=== PATIENT | female | born 1970 | race Hispanic/Latino ===

== ENCOUNTER 2017-08-19 16:19 | Emergency (ER) | payer MEDICAID, OTHER ==
[2017-08-19 16:48] VITALS: RESP 18; BMI 52.9
[2017-08-19] MEDS ORDERED: Labetalol 5 mg/ml Inj 20ML IV STA (17:11)
--- NOTE | 2017-08-19 17:13 | ED PDOC ---
Arrival/HPI - General Chief Complaint: Eye Problem Time Seen by Provider: 08/19/17 16:48 Historian: Patient - History of Present Illness Narrative History of Present Illness (Text): 08/19/17 17:00 Patient is a 47 year old female who presents to the Emergency department complaining headache and eye pain. She reports that she started experiencing headaches and decreased bilateral vision with left worse than right 2 months ago. 2 weeks ago her left eye started getting worse and she started to experience pain with left eye movement. Patient also reports that her headache is in the center of her forehead and hasn't worsened. She saw her wind farm engineer prior to arrival and was diagnosed with left conjunctiva hemorrhage. Patient wears glasses for near and far sight but hasn't worn them for months. Patient denies fevers, chills, cough, shortness of breath, chest pain, dyspnea on exertion, abdominal pain, nausea, vomiting, diarrhea, back pain, neck pain, or any other complaint. Time/Duration: > month Symptom Onset: Gradual Symptom Course: Worsening Context: Other (At wind farm engineer) Past Medical History - Provider Review Nursing Documentation Reviewed: Yes - Infectious Disease Hx of Infectious Diseases: None - Reproductive Menopause: No - Cardiac Hx Atrial Fibrillation: No Hx Cardiac Arrhythmia: No Hx Congestive Heart Failure: No Hx Hypertension: Yes Hx Mitral Valve Prolapse: No Hx Pacemaker: No Hx Peripheral Edema: No - Pulmonary Hx Asthma: Yes Hx Bronchitis: No Hx Chronic Obstructive Pulmonary Disease (COPD): No Hx Emphysema: No Hx Pneumonia: Yes Hx Pulmonary Embolism: No Hx Sleep Apnea: Yes - Neurological Hx Alzheimer's Disease: No Hx Dementia: No Hx Migraine: No Hx Multiple Sclerosis: No Hx Parkinson's Disease: No Hx Seizures: Yes Hx Transient Ischemic Attacks (TIA): No - HEENT Hx HEENT Disorder: No Hx Cataracts: No Hx Deafness: No Hx Difficulty Chewing: No Hx Epistaxis: No Hx Glaucoma: No Hx Macular Degeneration: No - Renal Hx Renal Disorder: No - Endocrine/Metabolic Hx Endocrine Disorders: No - Hematological/Oncological Hx Blood Disorders: No Hx Cancer: No - Integumentary Hx Dermatological Disorder: No Hx Basal Cell Carcinoma: No Hx Orantes: No Hx Cellulitis: No Hx Eczema: No Hx Melanoma: No Hx Psoriasis: No Hx Squamous Cell Carcinoma: No - Musculoskeletal/Rheumatological Hx Arthritis: No Hx Fractures: No Hx Osteoporosis: No Hx Rheumatoid Arthritis: No - Gastrointestinal Hx Crohn's Disease: No Hx Diverticulitis: No Hx Gall Bladder Disease: No Hx Gastritis: No Hx Pancreatitis: No - Genitourinary/Gynecological Hx Sexually Transmitted Diseases: No - Psychiatric Hx Anxiety: Yes Hx Bipolar Disorder: No Hx Depression: Yes Hx Panic Disorder: Yes Hx Post Traumatic Stress Disorder: No Hx Schizophrenia: Yes Hx Substance Use: Yes (PCP) - Surgical History Hx Appendectomy: No Hx Carotid Endarterectomy: No Hx Cholecystectomy: No Hx Coronary Artery Bypass Graft: No Hx Coronary Stent: No Hx Tonsillectomy: No - Anesthesia Hx Anesthesia: Yes Hx Anesthesia Reactions: No Hx Malignant Hyperthermia: No - Suicidal Assessment Feels Threatened In Home Enviroment: No Family/Social History - Physician Review Nursing Documentation Reviewed: Yes Family/Social History: No Known Family HX Smoking Status: electric Hx Alcohol Use: Yes Hx Substance Use: Yes (PCP) Substance used: PCP Allergies/Home Meds Allergies/Adverse Reactions: Allergies acetaminophen [From Tylenol] Allergy (Intermediate, Verified 03/12/15 13:40) URTICARIA mushroom Allergy (Intermediate, Verified 03/12/15 13:40) SWELLING strawberry Allergy (Intermediate, Verified 03/12/15 13:40) SWELLING ivory so Allergy (Mild, Uncoded 08/19/17 16:31) ITCHING Home Medications: Home Meds Medication Instructions Recorded Confirmed Dilantin 100 mg BID 02/07/14 03/12/15 Buspar 30 mg PO DAILY 04/29/14 03/12/15 Hyzaar 25 mg-100 mg 1 tab PO DAILY 04/29/14 03/12/15 Norvasc 10 mg PO DAILY 04/29/14 03/12/15 Topamax 50 mg PO Q12H 04/29/14 03/12/15 Review of Systems - Physician Review All systems were reviewed & negative as marked: Yes - Review of Systems Constitutional: absent: Fevers, Night Sweats Eyes: Vision Changes, Eye Pain Respiratory: absent: SOB, Cough Cardiovascular: absent: Chest Pain, DANIELSON Gastrointestinal: absent: Abdominal Pain, Diarrhea, Nausea, Vomiting Musculoskeletal: absent: Back Pain, Neck Pain Neurological: Headache Physical Exam Vital Signs Reviewed: Yes Vital Signs Temp Pulse Resp BP Pulse Ox 08/19/17 18:39 159/119 H 08/19/17 16:24 98.6 F 87 18 147/108 H 99 Temperature: Afebrile Blood Pressure: Hypertensive Pulse: Regular Respiratory Rate: Normal Appearance: Positive for: Well-Appearing Mental Status: Positive for: Alert and Oriented X 3 - Systems Exam Head: Present: Atraumatic, Normocephalic Pupils: Present: PERRL, Other (Visual 20/50 bilaterally. Left eye finger counting. Right eye 20/50.) Extroacular Muscles: Present: EOMI, Other (pain with left eye movement) Conjunctiva: Present: Normal Mouth: Present: Moist Mucous Membranes Neck: Present: Normal Range of Motion Respiratory/Chest: Present: Clear to Auscultation, Good Air Exchange. No: Respiratory Distress, Accessory Muscle Use Cardiovascular: Present: Regular Rate and Rhythm, Normal S1, S2. No: Murmurs Abdomen: No: Tenderness, Distention, Peritoneal Signs Back: Present: Normal Inspection Upper Extremity: Present: Normal Inspection. No: Cyanosis, Edema Lower Extremity: Present: Normal Inspection. No: Edema Neurological: Present: GCS=15, CN II-XII Intact, Speech Normal, Motor Func Grossly Intact, Normal Sensory Function, Norm Deep Tendon Reflexes Skin: Present: Warm, Dry, Normal Color. No: Rashes Psychiatric: Present: Alert, Oriented x 3, Normal Insight, Normal Concentration Medical Decision Making ED Course and Treatment: 08/19/17 17:00 Impression: Patient is a 47 year old female complaining of headaches and decreased vision bilaterally, which started 2 months ago and worsened 2 weeks ago. Differential Diagnosis included but are not limited to: Retinal hemorrhage, hypertensive urgency. Plan: --head CT without contrast --Labs --CBC --Trandate -- Reassess and disposition Prior Visits: Notes and results from previous visits were reviewed. Progress Notes: 08/19/17 17:[address]Ronald Viveros, Forms Examiner, who saw her earlier today in his clinic and states she has massive retinal hemorrhage with degeneration and field defect with finger counting to left eye only. He sent her to the ED. 08/19/17 18:48 Case discussed with Opthamologist Dr. Caballero, who recommends she come to his office tomorrow between 8:30-10:30 for an evaluation. He does not recommend any medications at this time. He will set her up with a retinal specialist. I discussed this with patient and she states her can take her to the [place] office. The address is written in the discharge papers. I signed out this case to Dr. Cerrato, to f/u CT, Labs, reevaluate and disposition. - Lab Interpretations I have reviewed the lab results: Yes - RAD Interpretation Radiology Orders: 08/19/17 17:10 HEAD W/O CONTRAST [CT] Stat 08/19/17 18:31 ORBITS/ FACIALS W/O CONTRAST [CT] Stat Police [employer] Instructor: Radiologist - Medication Orders Current Medication Orders: Discontinued Medications Labetalol HCl (Trandate) 20 mg IV STAT STA Stop: 08/19/17 17:12 - Scribe Statement The provider has reviewed the documentation as recorded by the Scribe Luis Denny Provider Scribe Attestation: All medical record entries made by the Scribe were at my direction and personally dictated by me. I have reviewed the chart and agree that the record accurately reflects my personal performance of the history, physical exam, medical decision making, and the department course for this patient. I have also personally directed, reviewed, and agree with the discharge instructions and disposition. Disposition/Present on Arrival - Present on Arrival Any Indicators Present on Arrival: No History of DVT/PE: No History of Uncontrolled Diabetes: No Urinary Catheter: No History of Decub. Ulcer: No History Surgical Site Infection Following: None - Disposition Have Diagnosis and Disposition been Completed?: Yes Diagnosis: Retinal hemorrhage, HTN (hypertension) Disposition Time: 18:51 Patient Problems: Current Active Problems Problem Status Onset HTN (hypertension) Acute Retinal hemorrhage Acute Condition: GOOD Additional Instructions: MELINA VICTOR, thank you for letting us take care of you today. Your provider was Jeramy Leroy DO and you were treated for Retinal Hemorrhage, Hypertension. The emergency medical care you received today was directed at your acute symptoms. If you were prescribed any medication, please fill it and take as directed. It may take several days for your symptoms to resolve. Return to the Emergency Department if your symptoms worsen, do not improve, or if you have any other problems. MAKE SURE TO SEE DR. CABALLERO TOMORROW BETWEEN 8:30 TO 10:30 IN THE [place] ADDRESS: Address: [place] [address] Please contact your doctor or call one of the physicians/clinics you have been referred to that are listed on the Patient Visit Information form that is included in your discharge packet. Bring any paperwork you were given at discharge with you along with any medications you are taking to your follow up visit. Our treatment cannot replace ongoing medical care by a primary care provider outside of the emergency department. Thank you for allowing the [facility] team to be part of your care today. If you had an X-Ray or CT scan: A Radiologist will review the ED reading if any change in treatment is needed we will contact you. If you had a blood, urine, or wound culture: It will take several days for the results, if any change in treatment is needed we will contact you. If you had an STI test: It will take 48 hours for the results. Please call after 1 week if you have not heard back. Forms: [employer] (Turkish)
[2017-08-19 18:54] LABS: BASO # 0.03 K/mm3 (0.0-2.0); BASO % 0.2 % (0.0-3.0); EOS # 0.3 (0.0-0.7); GRAN # 7.31 (1.4-6.5); GRAN % 58.1 % (50.0-68.0); HEMOGLOBIN 14.5 g/dL (12.0-16.0); LYMPH # 4.4 (1.2-3.4); LYMPH % 34.9 % (22.0-35.0); MEAN CELL VOLUME 85.9 fl (80.0-105.0); MEAN CORPUSCULAR HEMOGLOBIN 29.7 pg (25.0-35.0); MEAN CORPUSCULAR HGB CONC 34.6 g/dl (31.0-37.0); MEAN PLATELET VOLUME 10.6 fl (7.0-11.0); MONO # 0.6 (0.1-0.6); MONO % 4.8 % (1.0-6.0); RBC 4.88 10^6/uL (3.5-6.1); RED CELL DISTRIBUTION WIDTH 13.1 % (11.5-14.5); WHITE BLOOD COUNT 12.6 10^3/ul (4.5-11.0)
[2017-08-19 18:55] LABS: CALCIUM 8.7 mg/dL (8.4-10.5); GFR AFRICAN-AMERICAN > 60; GFR NON-AFRICAN AMERICAN > 60
--- NOTE | 2017-08-19 18:58 | ED PDOC ---
Physical Exam Vital Signs Temp Pulse Resp BP Pulse Ox 08/19/17 18:47 74 159/119 H 08/19/17 18:39 159/119 H 08/19/17 16:24 98.6 F 87 18 147/108 H 99 Medical Decision Making ED Course and Treatment: 08/19/17 18:58 Patient endorsed to me by . Pending labs, orbital/facial and head CT without contrast. 08/19/17 19:01 Reevaluation: Patient is in no acute distress and her blood pressure is 124/81. 50mg benadryl PO given when patient returned from CT, she states that she accidentally ate something strawberry flavored thinking it was cornejo flavored, was unable to see the difference due to her decreased vision. Patient with no stridor or respiratory distress. Had mild hives on hands. Symptoms resolved with benadryl. 08/19/17 21:05 CT Head Without Intravenous Contrast: Dictated and Authenticated by: Gideon Terrazas MD IMPRESSION: Nonspecific supratentorial white matter low density. When similar-appearing changes are seen in more mature patient's it is most commonly attributed to chronic small vessel ischemia. While this may also represent the etiology for this patient, given the provided age it is nonspecific. Other etiologies associated with white matter low density include hypertension, vasculitis and demyelinating processes. No acute intracranial hemorrhage or infarction. 08/19/17 21:05 CT Orbits Without Intravenous Contrast: Dictated and Authenticated by: Gideon Terrazas MD IMPRESSION: No acute findings. CT results discussed with patient. Stable for discharge home. Patient understands plan to follow up with alodize machine helper. BP improved throughout ED course. Rx written for NorHydrelisc, which patient takes at home but ran out of. - Lab Interpretations Lab Results: 08/19/17 18:37 08/19/17 18:37 Lab Results 08/19/17 18:37: Sodium 139, Potassium 4.8, Chloride 101, Carbon Dioxide 30, Anion Gap 14, BUN 12, Creatinine 0.6 L, Est GFR ( Amer) > 60, Est GFR ( Non-Af Amer) > 60, Random Glucose 99, Calcium 8.7 08/19/17 18:37: WBC 12.6 H, RBC 4.88, Hgb 14.5, Hct 41.9, MCV 85.9, MCH 29.7, MCHC 34.6, RDW 13.1, Plt Count 307, MPV 10.6, Gran % 58.1, Lymph % (Auto) 34.9, [place] % (Auto) 4.8, Eos % (Auto) 2.0, Baso % (Auto) 0.2, Gran # 7.31 H, Lymph # ( Auto) 4.4 H, [place] # (Auto) 0.6, Eos # (Auto) 0.3, Baso # (Auto) 0.03 I have reviewed the lab results: Yes - RAD Interpretation Radiology Orders: 08/19/17 17:10 HEAD W/O CONTRAST [CT] Stat 08/19/17 18:31 ORBITS/ FACIALS W/O CONTRAST [CT] Stat Security Services Manager: Radiologist - Medication Orders Current Medication Orders: Discontinued Medications Diphenhydramine HCl (Benadryl) 50 mg PO STAT STA Stop: 08/19/17 20:46 Labetalol HCl (Trandate) 20 mg IV STAT STA Stop: 08/19/17 17:12 Last Admin: 08/19/17 18:47 Dose: 20 mg eMAR Start Stop Document 08/19/17 18:47 MR (Rec: 08/19/17 18:47 MR [id number]) Intravenous Solution Start Date 08/19/17 Start Time 18:47 End Date 08/19/17 End time 18:49 Total Infusion Time 2 MAR Pulse and Blood Pressure Document 08/19/17 18:47 MR (Rec: 08/19/17 18:47 MR [id number]) Pulse Pulse Rate (60-90) 74 Blood Pressure Blood Pressure (100/60-150/90) 159/119 Metoclopramide HCl (Reglan) 10 mg IVP STAT STA Stop: 08/19/17 18:51 Last Admin: 08/19/17 19:15 Dose: 10 mg IVP Administration Document 08/19/17 19:15 RG (Rec: 08/19/17 19:32 RG [id number]) Charges for Administration # of IVP Administrations 1 - Scribe Statement The provider has reviewed the documentation as recorded by the Scribe Luis Denny Provider Scribe Attestation: All medical record entries made by the Scribe were at my direction and personally dictated by me. I have reviewed the chart and agree that the record accurately reflects my personal performance of the history, physical exam, medical decision making, and the department course for this patient. I have also personally directed, reviewed, and agree with the discharge instructions and disposition. Disposition/Present on Arrival - Present on Arrival Any Indicators Present on Arrival: No History of DVT/PE: No History of Uncontrolled Diabetes: No Urinary Catheter: No History of Decub. Ulcer: No History Surgical Site Infection Following: None - Disposition Have Diagnosis and Disposition been Completed?: Yes Diagnosis: Retinal hemorrhage, HTN (hypertension) Disposition: HOME/ ROUTINE Disposition Time: 21:20 Condition: GOOD Discharge Instructions (ExitCare): High Blood Pressure (DC), How to Care for Your Eyes Additional Instructions: MELINA VICTOR, thank you for letting us take care of you today. Your provider was Jeramy Leroy DO and you were treated for Retinal Hemorrhage, Hypertension. The emergency medical care you received today was directed at your acute symptoms. If you were prescribed any medication, please fill it and take as directed. It may take several days for your symptoms to resolve. Return to the Emergency Department if your symptoms worsen, do not improve, or if you have any other problems. MAKE SURE TO SEE DR. CABALLERO TOMORROW BETWEEN 8:30 TO 10:30 IN THE [place] ADDRESS: Address: [address] [place] [id number] Please contact your doctor or call one of the physicians/clinics you have been referred to that are listed on the Patient Visit Information form that is included in your discharge packet. Bring any paperwork you were given at discharge with you along with any medications you are taking to your follow up visit. Our treatment cannot replace ongoing medical care by a primary care provider outside of the emergency department. Thank you for allowing the [facility] team to be part of your care today. If you had an X-Ray or CT scan: A Radiologist will review the ED reading if any change in treatment is needed we will contact you. If you had a blood, urine, or wound culture: It will take several days for the results, if any change in treatment is needed we will contact you. If you had an STI test: It will take 48 hours for the results. Please call after 1 week if you have not heard back. Prescriptions: amLODIPine [Norvasc] 10 mg PO DAILY #20 tab Forms: [employer] (Wolof)
[2017-08-19 19:00] LABS: BLOOD UREA NITROGEN 12 mg/dL (7-21)
[2017-08-19 21:31] VITALS: BP 150/81; PULSE 82; O2SAT 96
[2017-08-19 21:42] VITALS: TEMP 98.5
--- NOTE | 2017-08-20 09:24 | CT ---
Date of service: 08/19/2017 PROCEDURE: CT HEAD WITHOUT CONTRAST. HISTORY: headache COMPARISON: None available. TECHNIQUE: Axial computed tomography images were obtained through the head/brain without intravenous contrast. Radiation dose: Total exam DLP = 1001 mGy-cm. This CT exam was performed using one or more of the following dose reduction techniques: Automated exposure control, adjustment of the mA and/or kV according to patient size, and/or use of iterative reconstruction technique. FINDINGS: HEMORRHAGE: No intracranial hemorrhage. BRAIN: No mass effect or edema. No atrophy or chronic microvascular ischemic changes. VENTRICLES: Unremarkable. No hydrocephalus. CALVARIUM: Unremarkable. PARANASAL SINUSES: Unremarkable as visualized. No significant inflammatory changes. MASTOID AIR CELLS: Unremarkable as visualized. No inflammatory changes. OTHER FINDINGS: The report concurs with the preliminary [facility] report IMPRESSION: No acute findings
--- NOTE | 2017-08-20 09:29 | CT ---
Date of service: 08/19/2017 PROCEDURE: CT ORBITS WITHOUT CONTRAST. HISTORY: pain with left eye movement COMPARISON: None available. TECHNIQUE: Axial CT images of the orbits were obtained. Coronal and sagittal reformats were generated. Radiation dose: Total exam DLP = 486 mGy-cm. This CT exam was performed using one or more of the following dose reduction techniques: Automated exposure control, adjustment of the mA and/or kV according to patient size, and/or use of iterative reconstruction technique. FINDINGS: RIGHT ORBIT: RIGHT BONY ORBIT: Normal. RIGHT INTRAORBITAL STRUCTURES: Globe: Normal. Extraocular muscles: Normal. Post septal space: Normal. Optic Nerve: Normal. Lacrimal Apparatus: Normal. RIGHT PRESEPTAL SOFT TISSUES: Normal. LEFT ORBIT: LEFT BONY ORBIT: Normal. LEFT INTRAORBITAL STRUCTURES: Globe: Normal. Extraocular muscles: Normal. Post septal space: Normal Optic Nerve: Normal. . Lacrimal Apparatus: Normal. LEFT PRESEPTAL SOFT TISSUES: Normal. OTHER: The report concurs with the preliminary [facility] report IMPRESSION: Unremarkable non contrast enhanced CT of the orbits.
== END 2017-08-19 21:20 | disposition home or self-care (01) ==
LOC: ED 16:19
DX: I10 Essential (primary) hypertension (principal); H35.62 Retinal hemorrhage, left eye; F20.9 Schizophrenia, unspecified
CPT/HCPCS: 70450; 70480; 80048; 85025; 96374; 99285; J2765

== ENCOUNTER 2017-10-20 13:16 | Emergency (ER) | payer OTHER ==
[2017-10-20 13:17] VITALS: BMI 52.9
[2017-10-20] MEDS ORDERED: Albuterol-Ipratrop 3 mg / 0.5 (3 ml) UD IH STA (13:59)
--- NOTE | 2017-10-20 14:03 | ED PDOC ---
Arrival/HPI - General Historian: Patient - History of Present Illness Time/Duration: < week Symptom Course: Worsening Quality: Pressure Severity Level: Mild <Elvin Posada - Last Filed: 10/20/17 15:29> <Erasto Gonzalez - Last Filed: 10/20/17 15:43> - General Chief Complaint: Cough, Cold, Congestion Time Seen by Provider: 10/20/17 13:18 - History of Present Illness Narrative History of Present Illness (Text): Patient is a 47 year old female with PMH of asthma, HTN, and DVT presenting to the ED with cough and shortness of breath. Patient states that she started coughing and having shortness of breath 4 days ago and it is getting worse. She describes the cough to be non-productive and constant. She states that her chest hurts when she coughs and her inhaler only helps a little. Patient is also complaining of a headache from coughing too much. Patient denies fevers, chills, abdominal pain, N/V/D, or urinary symptoms. (Elvin Posada) Past Medical History - Provider Review Nursing Documentation Reviewed: Yes - Travel History Have you recently traveled outside [place] w/in the past 3 mons?: No - Infectious Disease Hx of Infectious Diseases: None - Cardiac Hx Hypertension: Yes - Pulmonary Hx Asthma: Yes Hx Pneumonia: Yes Hx Sleep Apnea: Yes - Neurological Hx Seizures: Yes - HEENT Hx HEENT Disorder: No - Renal Hx Renal Disorder: No - Endocrine/Metabolic Hx Endocrine Disorders: No - Hematological/Oncological Hx Blood Disorders: No - Integumentary Hx Dermatological Disorder: No - Musculoskeletal/Rheumatological Hx Musculoskeletal Disorders: No - Gastrointestinal Hx Gastrointestinal Disorders: No - Genitourinary/Gynecological Hx Genitourinary Disorders: No - Psychiatric Hx Anxiety: Yes Hx Depression: Yes Hx Panic Disorder: Yes Hx Schizophrenia: Yes Hx Substance Use: Yes (PCP) - Surgical History Hx Appendectomy: No Hx Carotid Endarterectomy: No Hx Cholecystectomy: No Hx Coronary Artery Bypass Graft: No Hx Coronary Stent: No Hx Tonsillectomy: No - Anesthesia Hx Anesthesia: Yes Hx Anesthesia Reactions: No Hx Malignant Hyperthermia: No - Suicidal Assessment Feels Threatened In Home Enviroment: No <Elvin Posada - Last Filed: 10/20/17 15:29> Family/Social History - Physician Review Nursing Documentation Reviewed: Yes Family/Social History: No Known Family HX Smoking Status: Former Smoker (14 pack years smoking history, quit 8 months ago) Hx Alcohol Use: Yes Frequency of alcohol use: Socially Hx Substance Use: Yes (PCP) Substance used: PCP <Elvin Posada - Last Filed: 10/20/17 15:29> Allergies/Home Meds <Elvin Posada - Last Filed: 10/20/17 15:29> <Erasto Gonzalez - Last Filed: 10/20/17 15:43> Allergies/Adverse Reactions: Allergies acetaminophen [From Tylenol] Allergy (Intermediate, Verified 10/20/17 13:28) URTICARIA mushroom Allergy (Intermediate, Verified 10/20/17 13:28) SWELLING strawberry Allergy (Intermediate, Verified 10/20/17 13:28) SWELLING ivory so Allergy (Mild, Uncoded 10/20/17 13:28) ITCHING Review of Systems - Physician Review All systems were reviewed & negative as marked: Yes - Review of Systems Constitutional: Normal. absent: Fevers, Night Sweats Eyes: Normal ENT: Normal Respiratory: SOB, Cough. absent: Sputum, Wheezing Cardiovascular: Chest Pain (Complains of chest pain when she coughs). absent: Palpitations, Calf Pain Gastrointestinal: Normal. absent: Abdominal Pain, Constipation, Diarrhea, Nausea, Vomiting Genitourinary Female: Normal. absent: Dysuria, Frequency, Hematuria Musculoskeletal: Normal Skin: Normal. absent: Rash, Pruritis, Skin Lesions, Laceration Neurological: Headache. absent: Dizziness, Speech Changes Psychiatric: Normal. absent: Anxiety, Depression <Elvin Posada - Last Filed: 10/20/17 15:29> Physical Exam Vital Signs Reviewed: Yes Temperature: Afebrile Blood Pressure: Hypertensive Pulse: Regular Respiratory Rate: Normal Appearance: Positive for: Well-Appearing, Non-Toxic, Uncomfortable Pain Distress: Mild Mental Status: Positive for: Alert and Oriented X 3 - Systems Exam Head: Present: Atraumatic, Normocephalic Pupils: Present: PERRL Extroacular Muscles: Present: EOMI Conjunctiva: Present: Normal Mouth: Present: Moist Mucous Membranes Respiratory/Chest: Present: Clear to Auscultation, Good Air Exchange. No: Respiratory Distress, Accessory Muscle Use, Wheezes, Rales, Rhonchi Cardiovascular: Present: Regular Rate and Rhythm, Normal S1, S2. No: Murmurs, Rub, Gallop Abdomen: Present: Normal Bowel Sounds. No: Tenderness, Distention, Peritoneal Signs Upper Extremity: Present: Normal Inspection. No: Cyanosis, Edema Lower Extremity: Present: Normal Inspection, NORMAL PULSES. No: Edema, CALF TENDERNESS, Dominga's Sign Neurological: Present: GCS=15, CN II-XII Intact, Speech Normal Skin: Present: Warm, Dry, Normal Color. No: Rashes Psychiatric: Present: Alert, Oriented x 3, Normal Insight, Normal Concentration <Elvin Posada - Last Filed: 10/20/17 15:29> Vital Signs Temp Pulse Resp BP Pulse Ox 10/20/17 15:37 98.1 F 70 17 140/88 97 10/20/17 13:25 98.4 F 72 18 155/98 H 96 Medical Decision Making <Elvin Posada - Last Filed: 10/20/17 15:29> - RAD Interpretation Rn Peritoneal Dialysis: Radiologist <Erasto Gonzalez - Last Filed: 10/20/17 15:43> ED Course and Treatment: Impression: Patient is a 47 year old female presenting to the ED with a cough and shortness of breath. Differential Diagnosis included but are not limited to: - Asthma exacerbation - Chronic bronchitis - PE Plan: -- CBC -- CMP -- D-dimer -- CXR -- Urine test -- Troponin -- EKG -- BNP -- Duoneb -- UDS -- Serum alcohol level Progress Notes: 10/20/17 14:15 - EKG: NSR at 78 bpm - Urine test: negative 10/20/17 15:17 - UDS: positive for PCP and coccaine. - BNP: 161 - Troponin: <0.01 - WBC: 13.1 - D-dimer: <200 - Patient is stable for discharge (Elvin Posada) 10/20/17 14:26 Seen and examined with the resident. Our history and physical exam reveals a woman complaining of a several day history of a cough congestion shortness of breath and chest pain with coughing. History of polysubstance abuse. Lung sounds are diminished. She is in some mild respiratory distress. No fever or chills. No sputum production. 10/20/17 14:27 EKG shows normal sinus rhythm rate approximately [address] and T- wave changes especially laterally. (Erasto Gonzalez) - Lab Interpretations Lab Results: 10/20/17 14:10 10/20/17 14:10 Lab Results 10/20/17 14:10: Urine HCG, Qual Negative 10/20/17 14:10: Urine Opiates Screen Negative, Urine Methadone Screen Negative, Ur Barbiturates Screen Negative, Ur Phencyclidine Scrn Positive H, Ur Amphetamines Screen Negative, U Benzodiazepines Scrn Negative, U Oth Cocaine Metabols Positive H, U Cannabinoids Screen Negative 10/20/17 14:10: Alcohol, Quantitative < 10 10/20/17 14:10: D-Dimer, Quantitative < 200 10/20/17 14:10: Sodium 140, Potassium 4.0, Chloride 102, Carbon Dioxide 33, Anion Gap 10, BUN 7, Creatinine 0.7, Est GFR ( Amer) > 60, Est GFR (Non- Af Amer) > 60, Random Glucose 110, Calcium 8.5, Total Bilirubin 0.5, AST 21, ALT 29, Alkaline Phosphatase 69, Troponin I < 0.01, Total Protein 6.5, Albumin 3.5, Globulin 3.0, Albumin/Globulin Ratio 1.2 10/20/17 14:10: WBC 13.1 H, RBC 4.49, Hgb 13.2, Hct 39.6, MCV 88.2, MCH 29.4, MCHC 33.3, RDW 13.0, Plt Count 298, MPV 10.1, Gran % 62.9, Lymph % (Auto) 28.9, Owen % (Auto) 6.3 H, Eos % (Auto) 1.7, Baso % (Auto) 0.2, Gran # 8.21 H, Lymph # (Auto) 3.8 H, Owen # (Auto) 0.8 H, Eos # (Auto) 0.2, Baso # (Auto) 0.03 10/20/17 14:10: NT-Pro-B Natriuret Pep 161 - RAD Interpretation Radiology Orders: 10/20/17 13:58 CXR [CHEST PORTABLE] [RAD] Stat Chest one view is read by the radiologist shows no infiltrate effusion or cardiomegaly. (Erasto Gonzalez) - Medication Orders Current Medication Orders: Discontinued Medications Albuterol/Ipratropium (Duoneb 3 Mg/0.5 Mg (3 Ml) Ud) 3 ml IH ONCE STA Stop: 10/20/17 14:00 Last Admin: 10/20/17 14:19 Dose: 3 ml Disposition/Present on Arrival - Present on Arrival Any Indicators Present on Arrival: No History of DVT/PE: No History of Uncontrolled Diabetes: No Urinary Catheter: No History of Decub. Ulcer: No History Surgical Site Infection Following: None - Disposition Have Diagnosis and Disposition been Completed?: Yes Patient Plan: Discharge <Elvin Posada - Last Filed: 10/20/17 15:29> - Present on Arrival Any Indicators Present on Arrival: No History of DVT/PE: No History of Uncontrolled Diabetes: No Urinary Catheter: No History of Decub. Ulcer: No - Disposition Have Diagnosis and Disposition been Completed?: Yes Disposition Time: 15:20 Patient Plan: Discharge <Erasto Gonzalez - Last Filed: 10/20/17 15:43> - Disposition Diagnosis: Substance abuse, Asthma exacerbation, Asthmatic bronchitis Disposition: HOME/ ROUTINE Patient Problems: Current Active Problems Problem Status Onset Asthma exacerbation Acute Asthmatic bronchitis Acute Substance abuse Acute Condition: IMPROVED Discharge Instructions (ExitCare): Asthma in Adults, Acute Bronchitis, Drug Abuse Treatment, How to Use a Spacer Additional Instructions: MELINA VICTOR, thank you for letting us take care of you today. Your provider was Ed Gonzalez MD and you were treated for cough. The emergency medical care you received today was directed at your acute symptoms. If you were prescribed any medication, please fill it and take as directed. It may take several days for your symptoms to resolve. Return to the Emergency Department if your symptoms worsen, do not improve, or if you have any other problems. Please contact your doctor or call one of the physicians/clinics you have been referred to that are listed on the Patient Visit Information form that is included in your discharge packet. Bring any paperwork you were given at discharge with you along with any medications you are taking to your follow up visit. Our treatment cannot replace ongoing medical care by a primary care provider outside of the emergency department. Thank you for allowing the [facility] team to be part of your care today. Prescriptions: Amoxicillin [Amoxil 250 mg Cap] 250 mg PO TID #21 cap Prednisone [Deltasone] 20 mg PO DAILY #5 tablet Benzonatate [Tessalon Perles] 100 mg PO Q8 #30 sgl Albuterol HFA [Ventolin HFA 90 mcg/actuation (8 g)] 2 puff IH [id number] #1 puff Referrals: Sherrie Wallace MD [Medical Doctor] - Follow up with primary Forms: [employer] (Turkmen)
[2017-10-20 14:26] LABS: BASO # 0.03 K/mm3 (0.0-2.0); BASO % 0.2 % (0.0-3.0); EOS # 0.2 (0.0-0.7); EOS % 1.7 % (1.5-5.0); GRAN # 8.21 (1.4-6.5); GRAN % 62.9 % (50.0-68.0); HEMOGLOBIN 13.2 g/dL (12.0-16.0); LYMPH # 3.8 (1.2-3.4); LYMPH % 28.9 % (22.0-35.0); MEAN CELL VOLUME 88.2 fl (80.0-105.0); MEAN CORPUSCULAR HEMOGLOBIN 29.4 pg (25.0-35.0); MEAN CORPUSCULAR HGB CONC 33.3 g/dl (31.0-37.0); MEAN PLATELET VOLUME 10.1 fl (7.0-11.0); MONO # 0.8 (0.1-0.6); MONO % 6.3 % (1.0-6.0); RBC 4.49 10^6/uL (3.5-6.1); WHITE BLOOD COUNT 13.1 10^3/ul (4.5-11.0)
[2017-10-20 14:40] LABS: ALB/GLOB RATIO 1.2 (1.1-1.8); ALBUMIN 3.5 g/dL (3.0-4.8); ALT/SGPT 29 U/L (7-56); AST/SGOT 21 U/L (14-36); BLOOD UREA NITROGEN 7 mg/dL (7-21); CALCIUM 8.5 mg/dL (8.4-10.5); GFR NON-AFRICAN AMERICAN > 60
[2017-10-20 14:50] LABS: TROPONIN I < 0.01 ng/mL
[2017-10-20 15:03] LABS: BARBITURATES, UR NEGATIVE (NEGATIVE); BENZODIAZEPINES, UR NEGATIVE (NEGATIVE); OPIATES, UR NEGATIVE (NEGATIVE); PHENCYCLIDINE, UR POSITIVE (NEGATIVE)
--- NOTE | 2017-10-20 15:19 | RAD ---
Date of service: 10/20/2017 HISTORY: SOB, cough COMPARISON: No prior. FINDINGS: LUNGS: No active pulmonary disease. PLEURA: No significant pleural effusion identified, no pneumothorax apparent. CARDIOVASCULAR: Cardiomegaly suggested. No definite pulmonary vascular congestion. OSSEOUS STRUCTURES: No significant abnormalities. VISUALIZED UPPER ABDOMEN: Normal. OTHER FINDINGS: None. IMPRESSION: Cardiomegaly is suggested. No definite pulmonary vascular congestion. No acute pulmonary disease appreciated bilaterally.
[2017-10-20 15:38] VITALS: BP 140/88; PULSE 70; RESP 17; TEMP 98.1; O2SAT 97
--- NOTE | 2017-10-20 18:29 | CARD ---
APPROVED REPORT Date of service: 10/20/2017 EKG Measurement Heart [id number] <Conclusion> Normal sinus rhythm ST & T wave abnormality, consider inferolateral ischemia Abnormal ECG
== END 2017-10-20 15:57 | disposition home or self-care (01) ==
LOC: ED 13:16
DX: J45.901 Unspecified asthma with (acute) exacerbation (principal); F19.10 Other psychoactive substance abuse, uncomplicated; I10 Essential (primary) hypertension; F41.9 Anxiety disorder, unspecified; Z87.891 Personal history of nicotine dependence

== ENCOUNTER 2017-12-01 06:21 | Inpatient (IN) | payer OTHER ==
[2017-12-01 06:22] VITALS: BMI 52.9
[2017-12-01] MEDS ORDERED: Sodium Chloride 0.9% 1,000 ML IV STA (07:04)
--- NOTE | 2017-12-01 07:05 | ED PDOC ---
Arrival/HPI - General Chief Complaint: Shortness Of Breath Time Seen by Provider: 12/01/17 06:54 Historian: Patient - History of Present Illness Narrative History of Present Illness (Text): 47 y/o Fw/ PMH includes complex psychiatric history, DVT, asthma, and hypertension presenting to the emergency department complaining of persistent chest pain worsening since last night. She reports mid-sternal chest pain that radiates towards the back. She states she feels dizzy and dyspneic at rest. Of note, the patient was recently treated for pneumonia at [facility]. She reports recent diffuse watery diarrhea as result of being on antibiotics and reports a tingling sensation in her right lower extremity worsened with ambulation. She denies any fever, chills, productive cough, nausea, vomiting, urinary symptoms, neck pain, headache, or any other complaints. PMD: Dr. Heather Hou Time/Duration: Prior to Arrival Symptom Onset: Sudden Symptom Course: Worsening Severity Level: Moderate Activities at Onset: Rest Context: Home Past Medical History - Provider Review Nursing Documentation Reviewed: Yes - Travel History Have you recently traveled outside [place] w/in the past 3 mons?: No - Infectious Disease Hx of Infectious Diseases: None - Cardiac Hx Hypertension: Yes - Pulmonary Hx Asthma: Yes Hx Pneumonia: Yes Hx Sleep Apnea: Yes - Neurological Hx Seizures: Yes - HEENT Hx HEENT Disorder: No - Renal Hx Renal Disorder: No - Endocrine/Metabolic Hx Endocrine Disorders: No - Hematological/Oncological Hx Blood Disorders: No - Integumentary Hx Dermatological Disorder: No - Musculoskeletal/Rheumatological Hx Musculoskeletal Disorders: No - Gastrointestinal Hx Gastrointestinal Disorders: No - Genitourinary/Gynecological Hx Genitourinary Disorders: No - Psychiatric Hx Anxiety: Yes Hx Depression: Yes Hx Panic Disorder: Yes Hx Schizophrenia: Yes Hx Substance Use: Yes (PCP) - Surgical History Hx Appendectomy: No Hx Carotid Endarterectomy: No Hx Cholecystectomy: No Hx Coronary Artery Bypass Graft: No Hx Coronary Stent: No Hx Tonsillectomy: No - Anesthesia Hx Anesthesia: Yes Hx Anesthesia Reactions: No Hx Malignant Hyperthermia: No - Suicidal Assessment Feels Threatened In Home Enviroment: No Family/Social History - Physician Review Nursing Documentation Reviewed: Yes Family/Social History: No Known Family HX Smoking Status: Former Smoker Hx Alcohol Use: Yes Hx Substance Use: Yes (PCP) Substance used: PCP Allergies/Home Meds Allergies/Adverse Reactions: Allergies acetaminophen [From Tylenol] Allergy (Intermediate, Verified 10/20/17 13:28) URTICARIA mushroom Allergy (Intermediate, Verified 10/20/17 13:28) SWELLING strawberry Allergy (Intermediate, Verified 10/20/17 13:28) SWELLING ivory so Allergy (Mild, Uncoded 10/20/17 13:28) ITCHING Review of Systems - Physician Review All systems were reviewed & negative as marked: Yes - Review of Systems Constitutional: absent: Fevers, Other (Chills) Respiratory: SOB. absent: Cough Cardiovascular: Chest Pain Gastrointestinal: Diarrhea. absent: Nausea, Vomiting Genitourinary Female: absent: Dysuria, Frequency, Hematuria Musculoskeletal: absent: Neck Pain Neurological: Dizziness, Other (tingling sensation in her right lower extremity ). absent: Headache Physical Exam Vital Signs Reviewed: Yes Vital Signs Temp Pulse Resp BP Pulse Ox 12/01/17 06:40 151/91 H 12/01/17 06:27 97.9 F 80 18 98 Temperature: Afebrile Blood Pressure: Hypertensive Pulse: Regular Respiratory Rate: Normal Appearance: Positive for: Well-Appearing, Non-Toxic, Comfortable Pain Distress: None Mental Status: Positive for: Alert and Oriented X 3 (Able to speak in full sentences) - Systems Exam Head: Present: Atraumatic, Normocephalic Pupils: Present: PERRL Extroacular Muscles: Present: EOMI Conjunctiva: Present: Normal Mouth: Present: Moist Mucous Membranes Neck: Present: Normal Range of Motion Respiratory/Chest: Present: Clear to Auscultation, Good Air Exchange, Tender to Palpation (of the midsternal region of chest). No: Respiratory Distress, Accessory Muscle Use Cardiovascular: Present: Regular Rate and Rhythm, Normal S1, S2. No: Murmurs Abdomen: No: Tenderness, Distention, Peritoneal Signs Back: Present: Normal Inspection Upper Extremity: Present: Normal Inspection. No: Cyanosis, Edema Lower Extremity: Present: Normal Inspection. No: Edema, Other (Negative for right leg calf squeezing. No pedal edema or leg asymmetry ) Neurological: Present: GCS=15, CN II-XII Intact, Speech Normal Skin: Present: Warm, Dry, Normal Color. No: Rashes Psychiatric: Present: Alert, Oriented x 3, Normal Insight, Normal Concentration Medical Decision Making ED Course and Treatment: 12/01/17 06:50 Impression: 47 year old female presents complaining of persistent chest pain worsening since last night associated with dizziness and shortness of breath at rest. Patient also reports a tingling sensation in her right lower extremity. Differential Diagnosis included but are not limited to: Pneumonia Bronchitis PE Plan: -- VBG -- Labs -- CXR -- IV Fluids --Toradol -- Blood Culture -- Urine Test -- O2 via nasal cannula -- Urinalysis -- Reassess and disposition Prior Visits: Notes and results from previous visits were reviewed. Patient was last seen in the emergency department on cough and shortness of breath for the past 4 days. Patient was discharged home. Progress Notes: 12/01/17 08:[address] Murcia(hospitalist) who is aware and agrees with the plan. Accepts patient into hospitalist service. 12/01/17 08:36 Lab unable to draw coags from sample submitted. Attempted to redraw blood from patient who refuses. Will continue to monitor patient. - Lab Interpretations I have reviewed the lab results: Yes - RAD Interpretation Narrative RAD Interpretations (Text): PROCEDURE: Chest X-ray Dictator : Sidra Aponte MD Report Date : 12/01/2017 09:59:02 IMPRESSION: No active pulmonary disease. Radiology Orders: 12/01/17 07:01 CHEST PORTABLE [RAD] Stat Dining Service Inspector: Radiologist - EKG Interpretation EKG Interpretation (Text): 12/01/17 07:26 EKG shows Sinus at [address] elevation, no ST wave inversions, Prolonged QT intervals. Interpreted by me. Interpreted by ED Physician: Yes Type: 12 lead EKG - Medication Orders Current Medication Orders: Sodium Chloride (Sodium Chloride 0.9%) 1,000 mls @ 999 mls/hr IV .Q1H1M STA Stop: 12/01/17 08:04 Ketorolac Tromethamine (Toradol) 30 mg IVP STAT STA Stop: 12/01/17 07:05 - Scribe Statement The provider has reviewed the documentation as recorded by the Scribe Arturo Lou Provider Scribe Attestation: All medical record entries made by the Scribe were at my direction and personally dictated by me. I have reviewed the chart and agree that the record accurately reflects my personal performance of the history, physical exam, medical decision making, and the department course for this patient. I have also personally directed, reviewed, and agree with the discharge instructions and disposition. Disposition/Present on Arrival - Present on Arrival Any Indicators Present on Arrival: No History of DVT/PE: No History of Uncontrolled Diabetes: No Urinary Catheter: No History of Decub. Ulcer: No History Surgical Site Infection Following: None - Disposition Have Diagnosis and Disposition been Completed?: Yes Diagnosis: Pneumonia Disposition: HOSPITALIZED Disposition Time: 08:40 Condition: GOOD
[2017-12-01 07:54] LABS: BASO # 0.02 K/mm3 (0.0-2.0); BASO % 0.2 % (0.0-3.0); EOS # 0.3 (0.0-0.7); EOS % 2.1 % (1.5-5.0); GRAN # 7.5 (1.4-6.5); GRAN % 61.7 % (50.0-68.0); HEMOGLOBIN 12.7 g/dL (12.0-16.0); LYMPH # 3.6 (1.2-3.4); LYMPH % 29.3 % (22.0-35.0); MEAN CELL VOLUME 88.4 fl (80.0-105.0); MEAN CORPUSCULAR HGB CONC 32.8 g/dl (31.0-37.0); MEAN PLATELET VOLUME 10.2 fl (7.0-11.0); MONO # 0.8 (0.1-0.6); MONO % 6.7 % (1.0-6.0); RBC 4.38 10^6/uL (3.5-6.1); RED CELL DISTRIBUTION WIDTH 12.8 % (11.5-14.5); VENOUS BLOOD GAS BASE EXCESS 6.4 mmol/L (0.0-2.0); VENOUS BLOOD GAS PO2 86 mm/Hg (30-55); VENOUS BLOOD PH 7.37 (7.32-7.43); WHITE BLOOD COUNT 12.1 10^3/ul (4.5-11.0)
[2017-12-01 07:57] LABS: URINE BILIRUBIN NEGATIVE (NEGATIVE); URINE BLOOD TRACE-INTACT (NEGATIVE); URINE GLUCOSE (UA) NEGATIVE (NEGATIVE); URINE LEUKOCYTE ESTERASE NEGATIVE Leu/uL (NEGATIVE); URINE PROTEIN NEGATIVE mg/dL (<30 mg/dL); URINE UROBILINOGEN 0.2 E.U./dL (<1 E.U./dL)
[2017-12-01 08:03] LABS: ALB/GLOB RATIO 1.1 (1.1-1.8); ALBUMIN 3.5 g/dL (3.0-4.8); ALT/SGPT 34 U/L (7-56); AST/SGOT 18 U/L (14-36); BLOOD UREA NITROGEN 9 mg/dL (7-21); CALCIUM 8.3 mg/dL (8.4-10.5); GFR NON-AFRICAN AMERICAN > 60
[2017-12-01] MEDS ORDERED: Piperacill/Tazo 4.5gm in NS 4.5 GM/100 ML BAG IVPB STA (08:04)
[2017-12-01] MEDS ORDERED: Albuterol-Ipratrop 3 mg / 0.5 (3 ml) UD IH STA (08:05)
[2017-12-01 08:14] LABS: B-TYPE NATRIURETIC PEPTIDE 98.3 pg/mL (0-450); TROPONIN I < 0.01 ng/mL
[2017-12-01 08:25] LABS: URINE COLOR YELLOW (YELLOW)
[2017-12-01 08:26] LABS: URINE APPEARANCE CLEAR (CLEAR)
[2017-12-01 08:29] LABS: BARBITURATES, UR NEGATIVE (NEGATIVE); BENZODIAZEPINES, UR NEGATIVE (NEGATIVE); PHENCYCLIDINE, UR POSITIVE (NEGATIVE)
[2017-12-01 08:37] LABS: OPIATES, UR NEGATIVE (NEGATIVE)
[2017-12-01 08:44] LABS: URINE RBC 0 - 2 /hpf (0-2); URINE WBC NEGATIVE /hpf (0-6)
[2017-12-01] MEDS ORDERED: Azithromycin 500MG/NS 250ml 500 MG/250 ML BAG IVPB STA (08:44)
[2017-12-01 08:45] LABS: URINE EPITHELIAL CELLS 0 - 2 /hpf (0-5)
[2017-12-01] MEDS ORDERED: Albuterol-Ipratrop 3 mg / 0.5 (3 ml) UD IH PRN (09:03)
[2017-12-01 09:29] LABS: HDL CHOLESTEROL 44 mg/dL (29-60)
[2017-12-01 09:40] LABS: LDL CHOLESTEROL 146 mg/dL (0-129)
--- NOTE | 2017-12-01 10:02 | RAD ---
Date of service: 12/01/2017 HISTORY: sob COMPARISON: 10/20/2017 FINDINGS: LUNGS: The lungs are well inflated and clear. PLEURA: No pleural effusions or pneumothorax. CARDIOVASCULAR: The heart is normal in size. No aortic atherosclerotic calcification present. OSSEOUS STRUCTURES: Within normal limits for the patient's age. VISUALIZED UPPER ABDOMEN: Normal. OTHER FINDINGS: None. IMPRESSION: No active pulmonary disease.
[2017-12-01 11:39] LABS: VENOUS BLOOD GAS BASE EXCESS 4.2 mmol/L (0.0-2.0); VENOUS BLOOD GAS PO2 183 mm/Hg (30-55); VENOUS BLOOD PH 7.39 (7.32-7.43)
[2017-12-01 11:56] LABS: INR 1.14; PARTIAL THROMBOPLASTIN TIME 27.6 Seconds (25.1-36.5); PROTHROMBIN TIME 13.2 SECONDS (9.4-12.5)
[2017-12-01 12:04] LABS: D DIMER < 200 ng/mlDDU (0-243)
--- NOTE | 2017-12-01 12:42 | CP.PCM.HP ---
<Jaziel Sotelo - Last Filed: 12/01/17 13:43> History of Present Illness - History of Present Illness History of Present Illness: Jaziel Sotelo PGY1 History and Physical for Dr Murcia Pt is a 47yo female with a PMH of DVT, asthma (never intubated), HTN, who presents to the ED complaining of 10/10 chest pain worsened by cough which radiates to her back. Pt was recently admitted to [facility] for PNA and was discharged 2 weeks ago. Pt started to feel like she was getting sick again about 2 days ago. She states she started having a headache, non-bloody non-bilious vomiting. She reports coughing up green phlem, but no blood. She states she feels dizzy and also shortness of breath at rest. Pt denies fever or chills. Pt states she drank 3 cases of 24 x 12oz bottles of water. Pt states she has been using some cough medicine which has helped only minimally. Denies sick contacts. A 12 point ROS was obtained and added to the HPI where appropriate. PMH: asthma, HTN, PNA PSH: IVC filter, DVT, fistula, "hole in colon" FH: Mother 48 DM, 7xMI, HD, Father 84, CVA SH: Tobacco quit 6 months ago, Alcohol "only on and ", Drugs admits to cocaine Allergies: tylenol, strawberry, mushroom, Ivory soap-- rash for all Home meds: per chart Present on Admission - Present on Admission Any Indicators Present on Admission: Yes History of DVT/PE: Yes Review of Systems - Review of Systems Review of Systems: 12 point ROS was obtained and added to the HPI where appropriate Past Patient History - Infectious Disease Hx of Infectious Diseases: None - Past Medical History & Family History Past Medical History?: Yes - Past Social History Smoking Status: Never Smoked - CARDIAC Hx Hypertension: Yes - PULMONARY Hx Asthma: Yes Hx Chronic Obstructive Pulmonary Disease (COPD): Yes - NEUROLOGICAL Hx Seizures: Yes - HEENT Hx HEENT Problems: No - RENAL Hx Chronic Kidney Disease: No - ENDOCRINE/METABOLIC Hx Endocrine Disorders: No - HEMATOLOGICAL/ONCOLOGICAL Hx Blood Disorders: No - INTEGUMENTARY Hx Dermatological Problems: No - MUSCULOSKELETAL/RHEUMATOLOGICAL Hx Falls: Yes - GASTROINTESTINAL Hx Gastrointestinal Disorders: No - GENITOURINARY/GYNECOLOGICAL Hx Genitourinary Disorders: No - PSYCHIATRIC Hx Anxiety: Yes Hx Depression: Yes Hx Schizophrenia: Yes - SURGICAL HISTORY Hx Appendectomy: No Hx Carotid Endarterectomy: No Hx Cholecystectomy: No Hx Coronary Artery Bypass Graft: No Hx Coronary Stent: No Hx Tonsillectomy: No - ANESTHESIA Hx Anesthesia: Yes Hx Anesthesia Reactions: No Hx Malignant Hyperthermia: No Meds Allergies/Adverse Reactions: Allergies Allergy/AdvReac Type Severity Reaction Status Date / Time acetaminophen [From Tylenol] Allergy Intermediate URTICARIA Verified 10/20/17 13:28 mushroom Allergy Intermediate SWELLING Verified 10/20/17 13:28 strawberry Allergy Intermediate SWELLING Verified 10/20/17 13:28 ivory so Allergy Mild ITCHING Uncoded 10/20/17 13:28 Physical Exam - Constitutional Appears: No Acute Distress - Head Exam Head Exam: ATRAUMATIC, NORMAL INSPECTION, NORMOCEPHALIC - Eye Exam Eye Exam: EOMI - ENT Exam ENT Exam: Mucous Membranes Moist - Neck Exam Neck exam: Positive for: Full Rom - Respiratory Exam Respiratory Exam: Clear to Auscultation Bilateral, NORMAL BREATHING PATTERN. absent: Accessory Muscle Use, Wheezes, Respiratory Distress - Cardiovascular Exam Cardiovascular Exam: RRR, +S1, +S2. absent: Diastolic murmur, Systolic Murmur - GI/Abdominal Exam GI & Abdominal Exam: Normal Bowel Sounds, Soft. absent: Tenderness - Extremities Exam Extremities exam: Positive for: full ROM. Negative for: calf tenderness, pedal edema - Neurological Exam Neurological exam: Alert, Oriented x3 - Psychiatric Exam Psychiatric exam: Normal Affect, Normal Mood - Skin Skin Exam: Dry, Normal Color, Warm Results - Vital Signs Recent Vital Signs: Last Vital Signs Temp 98.7 F 12/01/17 11:49 Pulse 76 12/01/17 11:49 Resp 18 12/01/17 11:49 BP 174/100 H 12/01/17 11:49 Pulse Ox 98 12/01/17 11:49 - Labs Result Diagrams: 12/01/17 07:10 12/01/17 07:10 Labs: Laboratory Results - last 24 hr 12/01/17 12/01/17 12/01/17 07:10 07:10 07:10 WBC 12.1 H RBC 4.38 Hgb 12.7 Hct 38.7 MCV 88.4 MCH 29.0 MCHC 32.8 RDW 12.8 Plt Count 262 MPV 10.2 Gran % 61.7 Lymph % (Auto) 29.3 Young % (Auto) 6.7 H Eos % (Auto) 2.1 Baso % (Auto) 0.2 Gran # 7.50 H Lymph # (Auto) 3.6 H Young # (Auto) 0.8 H Eos # (Auto) 0.3 Baso # (Auto) 0.02 PT INR APTT D-Dimer, Quantitative pO2 86 H VBG pH 7.37 VBG pCO2 58.0 VBG HCO3 33.5 H VBG Total CO2 35.3 H VBG O2 Sat (Calc) 97.6 H VBG Base Excess 6.4 H VBG Potassium 3.7 Sodium 138.0 139 Chloride 102.0 101 Glucose 139 H Lactate 2.3 H FiO2 21.0 Potassium 3.8 Carbon Dioxide 33 Anion Gap 8 L BUN 9 Creatinine 0.6 L Est GFR ( Amer) > 60 Est GFR (Non-Af Amer) > 60 Random Glucose 137 H Calcium 8.3 L Magnesium 1.9 Total Bilirubin 0.3 AST 18 ALT 34 Alkaline Phosphatase 90 Total Creatine Kinase Troponin I < 0.01 NT-Pro-B Natriuret Pep 98.3 Total Protein 6.5 Albumin 3.5 Globulin 3.1 Albumin/Globulin Ratio 1.1 Triglycerides Cholesterol LDL Cholesterol Direct HDL Cholesterol Venous Blood Potassium 3.7 Urine Color Urine Appearance Urine pH Ur Specific Dexter Urine Protein Urine Glucose (UA) Urine Ketones Urine Blood Urine Nitrate Urine Bilirubin Urine Urobilinogen Ur Leukocyte Esterase Urine RBC Urine WBC Ur Epithelial Cells Urine Opiates Screen Urine Methadone Screen Ur Barbiturates Screen Ur Phencyclidine Scrn Ur Amphetamines Screen U Benzodiazepines Scrn U Oth Cocaine Metabols U Cannabinoids Screen 12/01/17 12/01/17 12/01/17 07:10 07:50 08:00 WBC RBC Hgb Hct MCV MCH MCHC RDW Plt Count MPV Gran % Lymph % (Auto) Young % (Auto) Eos % (Auto) Baso % (Auto) Gran # Lymph # (Auto) Young # (Auto) Eos # (Auto) Baso # (Auto) PT INR APTT D-Dimer, Quantitative pO2 VBG pH VBG pCO2 VBG HCO3 VBG Total CO2 VBG O2 Sat (Calc) VBG Base Excess VBG Potassium Sodium Chloride Glucose Lactate FiO2 Potassium Carbon Dioxide Anion Gap BUN Creatinine Est GFR ( Amer) Est GFR (Non-Af Amer) Random Glucose Calcium Magnesium Total Bilirubin AST ALT Alkaline Phosphatase Total Creatine Kinase 46 Troponin I NT-Pro-B Natriuret Pep Total Protein Albumin Globulin Albumin/Globulin Ratio Triglycerides 102 Cholesterol 198 LDL Cholesterol Direct 146 H HDL Cholesterol 44 Venous Blood Potassium Urine Color Yellow Urine Appearance Clear Urine pH 6.0 Ur Specific Dexter 1.020 Urine Protein Negative Urine Glucose (UA) Negative Urine Ketones Negative Urine Blood Trace-intact H Urine Nitrate Negative Urine Bilirubin Negative Urine Urobilinogen 0.2 Ur Leukocyte Esterase Negative Urine RBC 0 - 2 Urine WBC Negative Ur Epithelial Cells 0 - 2 Urine Opiates Screen Negative Urine Methadone Screen Negative Ur Barbiturates Screen Negative Ur Phencyclidine Scrn Positive H Ur Amphetamines Screen Negative U Benzodiazepines Scrn Negative U Oth Cocaine Metabols Positive H U Cannabinoids Screen Negative 12/01/17 12/01/17 11:30 11:30 WBC RBC Hgb Hct MCV MCH MCHC RDW Plt Count MPV Gran % Lymph % (Auto) Young % (Auto) Eos % (Auto) Baso % (Auto) Gran # Lymph # (Auto) Young # (Auto) Eos # (Auto) Baso # (Auto) PT 13.2 H INR 1.14 APTT 27.6 D-Dimer, Quantitative < 200 pO2 183 H VBG pH 7.39 VBG pCO2 50.0 VBG HCO3 30.3 H VBG Total CO2 31.8 H VBG O2 Sat (Calc) 99.2 H VBG Base Excess 4.2 H VBG Potassium 3.5 L Sodium 138.0 Chloride 102.0 Glucose 256 H Lactate 3.0 H FiO2 21.0 Potassium Carbon Dioxide Anion Gap BUN Creatinine Est GFR ( Amer) Est GFR (Non-Af Amer) Random Glucose Calcium Magnesium Total Bilirubin AST ALT Alkaline Phosphatase Total Creatine Kinase Troponin I NT-Pro-B Natriuret Pep Total Protein Albumin Globulin Albumin/Globulin Ratio Triglycerides Cholesterol LDL Cholesterol Direct HDL Cholesterol Venous Blood Potassium 3.5 L Urine Color Urine Appearance Urine pH Ur Specific Dexter Urine Protein Urine Glucose (UA) Urine Ketones Urine Blood Urine Nitrate Urine Bilirubin Urine Urobilinogen Ur Leukocyte Esterase Urine RBC Urine WBC Ur Epithelial Cells Urine Opiates Screen Urine Methadone Screen Ur Barbiturates Screen Ur Phencyclidine Scrn Ur Amphetamines Screen U Benzodiazepines Scrn U Oth Cocaine Metabols U Cannabinoids Screen Assessment & Plan - Assessment and Plan (Free Text) Assessment: Pt is a 47yo female with a PMH of DVT, asthma (never intubated), HTN, who presents to the ED complaining of 10/10 chest pain worsened by cough which radiates to her back. Plan: Chest pain, ACS rule out - trend trops - EKG shows no signs of ischemia - toradol - motrin Recent PNA - WBC 12 - afebrile - chest xray negative - procal - blood cultures - urine cultures - duonebs - tessalon pearls - O2 NC Diarrhea - c diff - stool cultures History of Drug use/abuse - Utox positive for cocaine and PCP HTN - hydralazine 10mg PRN Ppx - pepcid - heparin - HHD Pt seen, examined, assessment and plan discussed with Dr Divina Sotelo PGY1 - Date & Time Date: 12/01/17 Time: 13:23 <Alla Murcia - Last Filed: 12/01/17 15:54> Results - Vital Signs Recent Vital Signs: Last Vital Signs Temp 97.8 F 12/01/17 14:00 Pulse 75 12/01/17 14:00 Resp 18 12/01/17 14:00 BP 144/86 12/01/17 14:00 Pulse Ox 97 12/01/17 14:00 - Labs Result Diagrams: 12/01/17 07:10 12/01/17 07:10 Labs: Laboratory Results - last 24 hr 12/01/17 12/01/17 12/01/17 07:10 07:10 07:10 WBC 12.1 H RBC 4.38 Hgb 12.7 Hct 38.7 MCV 88.4 MCH 29.0 MCHC 32.8 RDW 12.8 Plt Count 262 MPV 10.2 Gran % 61.7 Lymph % (Auto) 29.3 Young % (Auto) 6.7 H Eos % (Auto) 2.1 Baso % (Auto) 0.2 Gran # 7.50 H Lymph # (Auto) 3.6 H Young # (Auto) 0.8 H Eos # (Auto) 0.3 Baso # (Auto) 0.02 PT INR APTT D-Dimer, Quantitative pO2 86 H VBG pH 7.37 VBG pCO2 58.0 VBG HCO3 33.5 H VBG Total CO2 35.3 H VBG O2 Sat (Calc) 97.6 H VBG Base Excess 6.4 H VBG Potassium 3.7 Sodium 138.0 139 Chloride 102.0 101 Glucose 139 H Lactate 2.3 H FiO2 21.0 Potassium 3.8 Carbon Dioxide 33 Anion Gap 8 L BUN 9 Creatinine 0.6 L Est GFR ( Amer) > 60 Est GFR (Non-Af Amer) > 60 Random Glucose 137 H Calcium 8.3 L Magnesium 1.9 Total Bilirubin 0.3 AST 18 ALT 34 Alkaline Phosphatase 90 Total Creatine Kinase Troponin I < 0.01 NT-Pro-B Natriuret Pep 98.3 Total Protein 6.5 Albumin 3.5 Globulin 3.1 Albumin/Globulin Ratio 1.1 Triglycerides Cholesterol LDL Cholesterol Direct HDL Cholesterol Venous Blood Potassium 3.7 Urine Color Urine Appearance Urine pH Ur Specific Dexter Urine Protein Urine Glucose (UA) Urine Ketones Urine Blood Urine Nitrate Urine Bilirubin Urine Urobilinogen Ur Leukocyte Esterase Urine RBC Urine WBC Ur Epithelial Cells Urine Opiates Screen Urine Methadone Screen Ur Barbiturates Screen Ur Phencyclidine Scrn Ur Amphetamines Screen U Benzodiazepines Scrn U Oth Cocaine Metabols U Cannabinoids Screen 12/01/17 12/01/17 12/01/17 07:10 07:50 08:00 WBC RBC Hgb Hct MCV MCH MCHC RDW Plt Count MPV Gran % Lymph % (Auto) Young % (Auto) Eos % (Auto) Baso % (Auto) Gran # Lymph # (Auto) Young # (Auto) Eos # (Auto) Baso # (Auto) PT INR APTT D-Dimer, Quantitative pO2 VBG pH VBG pCO2 VBG HCO3 VBG Total CO2 VBG O2 Sat (Calc) VBG Base Excess VBG Potassium Sodium Chloride Glucose Lactate FiO2 Potassium Carbon Dioxide Anion Gap BUN Creatinine Est GFR ( Amer) Est GFR (Non-Af Amer) Random Glucose Calcium Magnesium Total Bilirubin AST ALT Alkaline Phosphatase Total Creatine Kinase 46 Troponin I NT-Pro-B Natriuret Pep Total Protein Albumin Globulin Albumin/Globulin Ratio Triglycerides 102 Cholesterol 198 LDL Cholesterol Direct 146 H HDL Cholesterol 44 Venous Blood Potassium Urine Color Yellow Urine Appearance Clear Urine pH 6.0 Ur Specific Dexter 1.020 Urine Protein Negative Urine Glucose (UA) Negative Urine Ketones Negative Urine Blood Trace-intact H Urine Nitrate Negative Urine Bilirubin Negative Urine Urobilinogen 0.2 Ur Leukocyte Esterase Negative Urine RBC 0 - 2 Urine WBC Negative Ur Epithelial Cells 0 - 2 Urine Opiates Screen Negative Urine Methadone Screen Negative Ur Barbiturates Screen Negative Ur Phencyclidine Scrn Positive H Ur Amphetamines Screen Negative U Benzodiazepines Scrn Negative U Oth Cocaine Metabols Positive H U Cannabinoids Screen Negative 12/01/17 12/01/17 11:30 11:30 WBC RBC Hgb Hct MCV MCH MCHC RDW Plt Count MPV Gran % Lymph % (Auto) Young % (Auto) Eos % (Auto) Baso % (Auto) Gran # Lymph # (Auto) Young # (Auto) Eos # (Auto) Baso # (Auto) PT 13.2 H INR 1.14 APTT 27.6 D-Dimer, Quantitative < 200 pO2 183 H VBG pH 7.39 VBG pCO2 50.0 VBG HCO3 30.3 H VBG Total CO2 31.8 H VBG O2 Sat (Calc) 99.2 H VBG Base Excess 4.2 H VBG Potassium 3.5 L Sodium 138.0 Chloride 102.0 Glucose 256 H Lactate 3.0 H FiO2 21.0 Potassium Carbon Dioxide Anion Gap BUN Creatinine Est GFR ( Amer) Est GFR (Non-Af Amer) Random Glucose Calcium Magnesium Total Bilirubin AST ALT Alkaline Phosphatase Total Creatine Kinase Troponin I NT-Pro-B Natriuret Pep Total Protein Albumin Globulin Albumin/Globulin Ratio Triglycerides Cholesterol LDL Cholesterol Direct HDL Cholesterol Venous Blood Potassium 3.5 L Urine Color Urine Appearance Urine pH Ur Specific Dexter Urine Protein Urine Glucose (UA) Urine Ketones Urine Blood Urine Nitrate Urine Bilirubin Urine Urobilinogen Ur Leukocyte Esterase Urine RBC Urine WBC Ur Epithelial Cells Urine Opiates Screen Urine Methadone Screen Ur Barbiturates Screen Ur Phencyclidine Scrn Ur Amphetamines Screen U Benzodiazepines Scrn U Oth Cocaine Metabols U Cannabinoids Screen Attending/Attestation - Attestation I have personally seen and examined this patient.: Yes I have fully participated in the care of the patient.: Yes I have reviewed all pertinent clinical information: Yes Notes (Text): 12/01/17 15:49 47 year old female with past medical history of asthma, hypertension and recent pneumonia who presented with chest pain worsened with cough and deep breathing. Will obtain serial cardiac enzymes to rule out ACS. UTox was positive for cocaine and PCP; patient was counselled on risks of continued substance abuse. Slight leukocytosis likely reactive vs due to recent steroids. Patient received antibiotics in ER. CXR is negative. CDif study ordered as patient was complaining of diarrhea. Patient does not recall home medication she takes for hypertension; will start norvasc for now. Alla Murcia MD Hospitalist.
[2017-12-01] MEDS: Albuterol 0.083% Inhal Sol (2.5 mg/3 mL) UD IH SCH ×2 (14:29→19:59)
[2017-12-01] MEDS: Sodium Chloride 0.9% 1,000 ML IV SCH (14:40)
[2017-12-01 16:35] LABS: VENOUS BLOOD GAS BASE EXCESS 3.7 mmol/L (0.0-2.0); VENOUS BLOOD GAS PO2 116 mm/Hg (30-55); VENOUS BLOOD PH 7.39 (7.32-7.43)
[2017-12-01 16:54] LABS: TROPONIN I < 0.01 ng/mL
[2017-12-01] MEDS ORDERED: guaiFENesin 200 mg/10 ml Syrup UD PO STA (20:25)
[2017-12-01 23:21] LABS: TROPONIN I < 0.01 ng/mL
[2017-12-02] MEDS: Albuterol 0.083% Inhal Sol (2.5 mg/3 mL) UD IH SCH ×3 (01:12→13:19)
[2017-12-02] MEDS ORDERED: guaiFENesin-Codeine 100-10mg/5ml Syrup (5 ml) UD PO STA (05:55)
[2017-12-02 08:04] LABS: BASO # 0.02 K/mm3 (0.0-2.0); BASO % 0.2 % (0.0-3.0); EOS # 0.3 (0.0-0.7); EOS % 2.3 % (1.5-5.0); GRAN # 7.43 (1.4-6.5); GRAN % 64.7 % (50.0-68.0); HEMOGLOBIN 12.5 g/dL (12.0-16.0); LYMPH # 3.2 (1.2-3.4); LYMPH % 27.4 % (22.0-35.0); MEAN CELL VOLUME 89.3 fl (80.0-105.0); MEAN CORPUSCULAR HEMOGLOBIN 29.1 pg (25.0-35.0); MEAN CORPUSCULAR HGB CONC 32.6 g/dl (31.0-37.0); MEAN PLATELET VOLUME 9.8 fl (7.0-11.0); MONO # 0.6 (0.1-0.6); MONO % 5.4 % (1.0-6.0); RBC 4.29 10^6/uL (3.5-6.1); WHITE BLOOD COUNT 11.5 10^3/uL (4.5-11.0)
[2017-12-02 08:11] LABS: INR 1.12; PROTHROMBIN TIME 12.9 SECONDS (9.4-12.5)
[2017-12-02 08:20] LABS: ALB/GLOB RATIO 1.1 (1.1-1.8); ALBUMIN 3.4 g/dL (3.0-4.8); ALT/SGPT 31 U/L (7-56); AST/SGOT 16 U/L (14-36); BLOOD UREA NITROGEN 6 mg/dL (7-21); GFR NON-AFRICAN AMERICAN > 60
[2017-12-02] MEDS: Sodium Chloride 0.9% 1,000 ML IV SCH (09:27)
--- NOTE | 2017-12-02 10:29 | CARD ---
APPROVED REPORT Date of service: 12/01/2017 EKG Measurement Heart [id number] <Conclusion> Normal sinus rhythm LVH STTW changes c/w ischemia Prolonged QTc
[2017-12-02] MEDS ORDERED: guaiFENesin 200 mg/10 ml Syrup UD PO STA (14:06)
[2017-12-02 14:27] VITALS: RESP 18; TEMP 97.5; O2SAT 96
--- NOTE | 2017-12-02 14:58 | CP.PCM.DIS ---
<Jaziel Sotelo - Last Filed: 12/02/17 14:55> Provider - Provider Date of Admission: 12/01/17 08:45 Attending physician: Alla Murcia MD Primary care physician: Heather Hou MD Time Spent in preparation of Discharge (in minutes): 45 Diagnosis - Discharge Diagnosis (1) Chest pain Status: Acute Priority: High (2) Cough Status: Acute Priority: High (3) Drug dependence Status: Acute Priority: High Hospital Course - Lab Results Lab Results: Micro Results 12/01/17 07:35 Blood-Venous Blood Culture - Preliminary NO GROWTH AFTER 24 HOURS 12/01/17 07:10 Blood-Venous Blood Culture - Preliminary NO GROWTH AFTER 24 HOURS Most Recent Lab Values WBC 11.5 10^3/uL (4.5-11.0) H 12/02/17 07:50 RBC 4.29 10^6/uL (3.5-6.1) 12/02/17 07:50 Hgb 12.5 g/dL (12.0-16.0) 12/02/17 07:50 Hct 38.3 % (36.0-48.0) 12/02/17 07:50 MCV 89.3 fl (80.0-105.0) 12/02/17 07:50 MCH 29.1 pg (25.0-35.0) 12/02/17 07:50 MCHC 32.6 g/dl (31.0-37.0) 12/02/17 07:50 RDW 13.0 % (11.5-14.5) 12/02/17 07:50 Plt Count 262 10^3/uL (120.0-450.0) 12/02/17 07:50 MPV 9.8 fl (7.0-11.0) 12/02/17 07:50 Gran % 64.7 % (50.0-68.0) 12/02/17 07:50 Lymph % (Auto) 27.4 % (22.0-35.0) 12/02/17 07:50 [place] % (Auto) 5.4 % (1.0-6.0) 12/02/17 07:50 Eos % (Auto) 2.3 % (1.5-5.0) 12/02/17 07:50 Baso % (Auto) 0.2 % (0.0-3.0) 12/02/17 07:50 Gran # 7.43 (1.4-6.5) H 12/02/17 07:50 Lymph # (Auto) 3.2 (1.2-3.4) 12/02/17 07:50 [place] # (Auto) 0.6 (0.1-0.6) 12/02/17 07:50 Eos # (Auto) 0.3 (0.0-0.7) 12/02/17 07:50 Baso # (Auto) 0.02 K/mm3 (0.0-2.0) 12/02/17 07:50 PT 12.9 SECONDS (9.4-12.5) H 12/02/17 07:50 INR 1.12 12/02/17 07:50 APTT 27.6 Seconds (25.1-36.5) 12/01/17 11:30 D-Dimer, Quantitative < 200 ng/mlDDU (0-243) 12/01/17 11:30 pO2 116 mm/Hg (30-55) H 12/01/17 16:21 VBG pH 7.39 (7.32-7.43) 12/01/17 16:21 VBG pCO2 49.0 (40-60) 12/01/17 16:21 VBG HCO3 29.7 mmol/l (21-28) H 12/01/17 16:21 VBG Total CO2 31.2 mmol.L (22-28) H 12/01/17 16:21 VBG O2 Sat (Calc) 99.1 % (40-65) H 12/01/17 16:21 VBG Base Excess 3.7 mmol/L (0.0-2.0) H 12/01/17 16:21 VBG Potassium 3.8 mmol/L (3.6-5.2) 12/01/17 16:21 Sodium 140.0 mmol/L (132-148) 12/01/17 16:21 Chloride 106.0 mmol/L (98-107) 12/01/17 16:21 Glucose 234 mg/dl (65-105) H 12/01/17 16:21 Lactate 1.9 mmol/L (0.7-2.1) 12/01/17 16:21 FiO2 21.0 % 12/01/17 16:21 Sodium 138 mmol/L (132-148) 12/02/17 07:50 Potassium 4.0 mmol/L (3.6-5.0) 12/02/17 07:50 Chloride 104 mmol/L (98-107) 12/02/17 07:50 Carbon Dioxide 31 mmol/L (21-33) 12/02/17 07:50 Anion Gap 8 (10-20) L 12/02/17 07:50 BUN 6 mg/dL (7-21) L 12/02/17 07:50 Creatinine 0.6 mg/dl (0.7-1.2) L 12/02/17 07:50 Est GFR ( Amer) > 60 12/02/17 07:50 Est GFR (Non-Af Amer) > 60 12/02/17 07:50 Random Glucose 174 mg/dL (70-110) H 12/02/17 07:50 Calcium 8.0 mg/dL (8.4-10.5) L 12/02/17 07:50 Magnesium 1.9 mg/dL (1.7-2.2) 12/01/17 07:10 Total Bilirubin 0.4 mg/dL (0.2-1.3) 12/02/17 07:50 AST 16 U/L (14-36) 12/02/17 07:50 ALT 31 U/L (7-56) 12/02/17 07:50 Alkaline Phosphatase 89 U/L (38-126) 12/02/17 07:50 Lactate Dehydrogenase 416 U/L (333-699) 12/01/17 22:48 Total Creatine Kinase 46 U/L (35-230) 12/01/17 22:48 Troponin I < 0.01 ng/mL 12/01/17 22:48 NT-Pro-B Natriuret Pep 98.3 pg/mL (0-450) 12/01/17 07:10 Total Protein 6.4 g/dL (5.8-8.3) 12/02/17 07:50 Albumin 3.4 g/dL (3.0-4.8) 12/02/17 07:50 Globulin 3.0 gm/dL 12/02/17 07:50 Albumin/Globulin Ratio 1.1 (1.1-1.8) 12/02/17 07:50 Triglycerides 102 mg/dL (35-160) 12/01/17 07:10 Cholesterol 198 mg/dL (130-200) 12/01/17 07:10 LDL Cholesterol Direct 146 mg/dL (0-129) H 12/01/17 07:10 HDL Cholesterol 44 mg/dL (29-60) 12/01/17 07:10 Venous Blood Potassium 3.8 mmol/L (3.6-5.2) 12/01/17 16:21 Urine Color Yellow (YELLOW) 12/01/17 07:50 Urine Appearance Clear (CLEAR) 12/01/17 07:50 Urine pH 6.0 (4.7-8.0) 12/01/17 07:50 Ur Specific [place] 1.020 (1.005-1.035) 12/01/17 07:50 Urine Protein Negative mg/dL (<30 mg/dL) 12/01/17 07:50 Urine Glucose (UA) Negative mg/dL (NEGATIVE) 12/01/17 07:50 Urine Ketones Negative mg/dL (NEGATIVE) 12/01/17 07:50 Urine Blood Trace-intact (NEGATIVE) H 12/01/17 07:50 Urine Nitrate Negative (NEGATIVE) 12/01/17 07:50 Urine Bilirubin Negative (NEGATIVE) 12/01/17 07:50 Urine Urobilinogen 0.2 E.U./dL (<1 E.U./dL) 12/01/17 07:50 Ur Leukocyte Esterase Negative Janette/uL (NEGATIVE) 12/01/17 07:50 Urine RBC 0 - 2 /hpf (0-2) 12/01/17 07:50 Urine WBC Negative /hpf (0-6) 12/01/17 07:50 Ur Epithelial Cells 0 - 2 /hpf (0-5) 12/01/17 07:50 Urine Opiates Screen Negative (NEGATIVE) 12/01/17 08:00 Urine Methadone Screen Negative (NEGATIVE) 12/01/17 08:00 Ur Barbiturates Screen Negative (NEGATIVE) 12/01/17 08:00 Ur Phencyclidine Scrn Positive (NEGATIVE) H 12/01/17 08:00 Ur Amphetamines Screen Negative (NEGATIVE) 12/01/17 08:00 U Benzodiazepines Scrn Negative (NEGATIVE) 12/01/17 08:00 U Oth Cocaine Metabols Positive (NEGATIVE) H 12/01/17 08:00 U Cannabinoids Screen Negative (NEGATIVE) 12/01/17 08:00 - Hospital Course Hospital Course: Pt is a 47 year old female with PMH of DVT, asthma (never intubated), HTN, and recent pneumonia who presented on 12/01/17 for chest pain worsened with cough and deep breathing. She was recently discharged from [facility] for pneumonia 2 weeks ago but started to feel like she was sick again and presented to [facility]. Pt reported headache, dizziness, and productive cough. Pt stated that her chest pain was 10/10 severity, worsened with cough and radiating to her back. Pt denied fever, chills, palpitations, constipation, diarrhea, or recent sick contacts. In the ED, she was afebrile, slight leukocytosis likely reactive to recent steroid use, EKG was normal sinus rhythm, and Chest Xray was negative for acute cardiopulmonary disease. She received a dose of zosyn and azithromycin in the ED. Pts pneumonia is likely resolved. Pt was admitted for ACS rule out. On admission, patient admitted to cocaine use; urine drug screen was positive for cocaine and phencyclidine. She was counselled on risks of continued substance abuse. Troponins were negative x 3. Patient was hypertensive in the 150s/70s and Norvasc 5mg daily was started. Pt was given robitussin for cough which she stated relieved her symptoms. Pt is being discharged on Robutissun 200 mg PO q6, Norvasc 5mg PO daily, and continuation of her home Albuterol inhaler with instructions to followup with her primary medical doctor. - Date & Time of H&P Date of H&P: 12/02/17 Time of H&P: 07:00 Discharge Exam - Head Exam Head Exam: ATRAUMATIC, NORMAL INSPECTION, NORMOCEPHALIC - Eye Exam Eye Exam: EOMI - ENT Exam ENT Exam: Mucous Membranes Moist - Neck Exam Neck exam: Full Rom - Respiratory Exam Respiratory Exam: NORMAL BREATHING PATTERN, UNREMARKABLE. absent: Accessory Muscle Use, Wheezes, Respiratory Distress - Cardiovascular Exam Cardiovascular Exam: RRR, +S1, +S2. absent: Diastolic murmur, Systolic Murmur - GI/Abdominal Exam GI & Abdominal Exam: Normal Bowel Sounds, Unremarkable. absent: Tenderness - Extremities Exam Extremities exam: full ROM, pedal pulses present - Neurological Exam Neurological exam: Alert, Oriented x3 - Psychiatric Exam Psychiatric exam: Normal Affect, Normal Mood - Skin Skin Exam: Dry, Intact, Warm Discharge Plan - Discharge Medications Prescriptions: Albuterol HFA [Ventolin HFA 90 mcg/actuation (8 g)] 2 puff IH [id number] #1 puff amLODIPine [Norvasc] 5 mg PO DAILY #30 tab guaiFENesin [Robitussin] 200 mg PO Q6 #1 bottle - Follow Up Plan Condition: GOOD Disposition: HOME/ ROUTINE Additional Instructions: 1. please follow up with your primary care physician within 1 week 2. please take your amlodipine 5mg once daily, as directed, for your high blood pressure 3. please take your robitussin for your cough 4. if your symptoms return or worsen, go to the nearest emergency department Referrals: Heather Hou MD [Primary Care Provider] - <Alla Murcia - Last Filed: 12/02/17 16:37> Provider - Provider Date of Admission: 12/01/17 08:45 Attending physician: Alla Murcia MD Primary care physician: Heather Hou MD Hospital Course - Lab Results Lab Results: Micro Results 12/01/17 07:35 Blood-Venous Blood Culture - Preliminary NO GROWTH AFTER 24 HOURS 12/01/17 07:10 Blood-Venous Blood Culture - Preliminary NO GROWTH AFTER 24 HOURS Most Recent Lab Values WBC 11.5 10^3/uL (4.5-11.0) H 12/02/17 07:50 RBC 4.29 10^6/uL (3.5-6.1) 12/02/17 07:50 Hgb 12.5 g/dL (12.0-16.0) 12/02/17 07:50 Hct 38.3 % (36.0-48.0) 12/02/17 07:50 MCV 89.3 fl (80.0-105.0) 12/02/17 07:50 MCH 29.1 pg (25.0-35.0) 12/02/17 07:50 MCHC 32.6 g/dl (31.0-37.0) 12/02/17 07:50 RDW 13.0 % (11.5-14.5) 12/02/17 07:50 Plt Count 262 10^3/uL (120.0-450.0) 12/02/17 07:50 MPV 9.8 fl (7.0-11.0) 12/02/17 07:50 Gran % 64.7 % (50.0-68.0) 12/02/17 07:50 Lymph % (Auto) 27.4 % (22.0-35.0) 12/02/17 07:50 [place] % (Auto) 5.4 % (1.0-6.0) 12/02/17 07:50 Eos % (Auto) 2.3 % (1.5-5.0) 12/02/17 07:50 Baso % (Auto) 0.2 % (0.0-3.0) 12/02/17 07:50 Gran # 7.43 (1.4-6.5) H 12/02/17 07:50 Lymph # (Auto) 3.2 (1.2-3.4) 12/02/17 07:50 [place] # (Auto) 0.6 (0.1-0.6) 12/02/17 07:50 Eos # (Auto) 0.3 (0.0-0.7) 12/02/17 07:50 Baso # (Auto) 0.02 K/mm3 (0.0-2.0) 12/02/17 07:50 PT 12.9 SECONDS (9.4-12.5) H 12/02/17 07:50 INR 1.12 12/02/17 07:50 APTT 27.6 Seconds (25.1-36.5) 12/01/17 11:30 D-Dimer, Quantitative < 200 ng/mlDDU (0-243) 12/01/17 11:30 pO2 116 mm/Hg (30-55) H 12/01/17 16:21 VBG pH 7.39 (7.32-7.43) 12/01/17 16:21 VBG pCO2 49.0 (40-60) 12/01/17 16:21 VBG HCO3 29.7 mmol/l (21-28) H 12/01/17 16:21 VBG Total CO2 31.2 mmol.L (22-28) H 12/01/17 16:21 VBG O2 Sat (Calc) 99.1 % (40-65) H 12/01/17 16:21 VBG Base Excess 3.7 mmol/L (0.0-2.0) H 12/01/17 16:21 VBG Potassium 3.8 mmol/L (3.6-5.2) 12/01/17 16:21 Sodium 140.0 mmol/L (132-148) 12/01/17 16:21 Chloride 106.0 mmol/L (98-107) 12/01/17 16:21 Glucose 234 mg/dl (65-105) H 12/01/17 16:21 Lactate 1.9 mmol/L (0.7-2.1) 12/01/17 16:21 FiO2 21.0 % 12/01/17 16:21 Sodium 138 mmol/L (132-148) 12/02/17 07:50 Potassium 4.0 mmol/L (3.6-5.0) 12/02/17 07:50 Chloride 104 mmol/L (98-107) 12/02/17 07:50 Carbon Dioxide 31 mmol/L (21-33) 12/02/17 07:50 Anion Gap 8 (10-20) L 12/02/17 07:50 BUN 6 mg/dL (7-21) L 12/02/17 07:50 Creatinine 0.6 mg/dl (0.7-1.2) L 12/02/17 07:50 Est GFR ( Amer) > 60 12/02/17 07:50 Est GFR (Non-Af Amer) > 60 12/02/17 07:50 Random Glucose 174 mg/dL (70-110) H 12/02/17 07:50 Calcium 8.0 mg/dL (8.4-10.5) L 12/02/17 07:50 Magnesium 1.9 mg/dL (1.7-2.2) 12/01/17 07:10 Total Bilirubin 0.4 mg/dL (0.2-1.3) 12/02/17 07:50 AST 16 U/L (14-36) 12/02/17 07:50 ALT 31 U/L (7-56) 12/02/17 07:50 Alkaline Phosphatase 89 U/L (38-126) 12/02/17 07:50 Lactate Dehydrogenase 416 U/L (333-699) 12/01/17 22:48 Total Creatine Kinase 46 U/L (35-230) 12/01/17 22:48 Troponin I < 0.01 ng/mL 12/01/17 22:48 NT-Pro-B Natriuret Pep 98.3 pg/mL (0-450) 12/01/17 07:10 Total Protein 6.4 g/dL (5.8-8.3) 12/02/17 07:50 Albumin 3.4 g/dL (3.0-4.8) 12/02/17 07:50 Globulin 3.0 gm/dL 12/02/17 07:50 Albumin/Globulin Ratio 1.1 (1.1-1.8) 12/02/17 07:50 Triglycerides 102 mg/dL (35-160) 12/01/17 07:10 Cholesterol 198 mg/dL (130-200) 12/01/17 07:10 LDL Cholesterol Direct 146 mg/dL (0-129) H 12/01/17 07:10 HDL Cholesterol 44 mg/dL (29-60) 12/01/17 07:10 Venous Blood Potassium 3.8 mmol/L (3.6-5.2) 12/01/17 16:21 Urine Color Yellow (YELLOW) 12/01/17 07:50 Urine Appearance Clear (CLEAR) 12/01/17 07:50 Urine pH 6.0 (4.7-8.0) 12/01/17 07:50 Ur Specific [place] 1.020 (1.005-1.035) 12/01/17 07:50 Urine Protein Negative mg/dL (<30 mg/dL) 12/01/17 07:50 Urine Glucose (UA) Negative mg/dL (NEGATIVE) 12/01/17 07:50 Urine Ketones Negative mg/dL (NEGATIVE) 12/01/17 07:50 Urine Blood Trace-intact (NEGATIVE) H 12/01/17 07:50 Urine Nitrate Negative (NEGATIVE) 12/01/17 07:50 Urine Bilirubin Negative (NEGATIVE) 12/01/17 07:50 Urine Urobilinogen 0.2 E.U./dL (<1 E.U./dL) 12/01/17 07:50 Ur Leukocyte Esterase Negative Janette/uL (NEGATIVE) 12/01/17 07:50 Urine RBC 0 - 2 /hpf (0-2) 12/01/17 07:50 Urine WBC Negative /hpf (0-6) 12/01/17 07:50 Ur Epithelial Cells 0 - 2 /hpf (0-5) 12/01/17 07:50 Urine Opiates Screen Negative (NEGATIVE) 12/01/17 08:00 Urine Methadone Screen Negative (NEGATIVE) 12/01/17 08:00 Ur Barbiturates Screen Negative (NEGATIVE) 12/01/17 08:00 Ur Phencyclidine Scrn Positive (NEGATIVE) H 12/01/17 08:00 Ur Amphetamines Screen Negative (NEGATIVE) 12/01/17 08:00 U Benzodiazepines Scrn Negative (NEGATIVE) 12/01/17 08:00 U Oth Cocaine Metabols Positive (NEGATIVE) H 12/01/17 08:00 U Cannabinoids Screen Negative (NEGATIVE) 12/01/17 08:00 Attending/Attestation - Attestation I have personally seen and examined this patient.: Yes I have fully participated in the care of the patient.: Yes I have reviewed all pertinent clinical information, including history, physical exam and plan: Yes Notes (Text): 12/02/17 16:35 47 year old female with past medical history of asthma, hypertension and recent pneumonia who presented with chest pain worsened with cough and deep breathing. Serial cardiac enzymes were negative and ACS was ruled out. UTox was positive for cocaine and PCP. Patient was counselled on risks of continued substance abuse. She had mild leukocytosis likely reactive vs due to recent steroids which improved. CXR was negative. Patient was started on robitussin for cough and norvasc for hypertension. Overall patient's symptoms improved. She is discharged home to follow up with her pmd. Counselled on risks of continued substance abuse. Alla Murcia MD Hospitalist.
[2017-12-02 17:31] VITALS: BP 171/97; PULSE 89
--- NOTE | 2017-12-02 19:24 | PCM.RRT ---
<NoClovis - Last Filed: 12/02/17 19:38> FUNCTIONAL CONSULTANT Nurse Assessment - Situation Date: 12/02/17 Time FUNCTIONAL CONSULTANT was called: 19:39 FUNCTIONAL CONSULTANT Responder Arrival Time: 19:01 FUNCTIONAL CONSULTANT Location:: [facility] FUNCTIONAL CONSULTANT Reason for Call: Respiratory Distress FUNCTIONAL CONSULTANT Called By: Other Disciplines - IV IV Inserted during FUNCTIONAL CONSULTANT?: No - Respiratory Oxygen Delivery Method: Nasal Cannula @L/min Oxygen Flow Rate: 2 Received Nebulizer Treatments:: No Was the Patient Ventilated with Bag/Mask 100% O2?: No Secretions Suctioned?: No Was the Patient Intubated?: No Was the Patient Placed on a Ventilator?: No I.Reason for FUNCTIONAL CONSULTANT - A) Acute Change in Patient: Subjective: Patient is a 47 yo F who had been discharged and was awaiting transportation home in the [facility] when she became short of breath. Patient requires constant supplemental oxygen, however, no oxygen was arranged for her transport home. Subsequently, patient became short of breath without oxygen while waiting for her cab. Patient O2 sat was WNL when supplemental oxygen was applied. [facility] transport was arranged for the patient so oxygen could be given to her during transport. - Neurological Status (Select all that apply): Alert - Respiratory Oxygen Delivery Method: Nasal Cannula @L/min - Constitutional Appears: Non-toxic - Head Head Exam: NORMAL INSPECTION - Eyes Eye Exam: Normal appearance - Respiratory Exam Respiratory Exam: Respiratory Distress. absent: Rales, Rhonchi, Wheezes - Cardiovascular Exam Cardiovascular Exam: RRR, +S1, +S2. absent: Gallop, Rubs, Murmur - GI/Abdominal Exam GI & Abdominal Exam: Soft. absent: Distended, Guarding, Tenderness, Rebound - Neurological Exam Neurological Exam: Alert, Awake, Oriented x3 - Extremities Exam Extremities Exam: Full ROM Plan - Assessment of Findings&Treatment Plan 47 yo F short of breath without o2. Plan is to give supplemental oxygen and arrange transport via [facility]. Patient states that she oxygen at home. <Marco Abebe - Last Filed: 12/02/17 23:14> Attending/Attestation - Attestation I have personally seen and examined this patient.: Yes I have fully participated in the care of the patient.: Yes I have reviewed all pertinent clinical information, including history, physical exam and plan: Yes Notes (Text): 10/26/18 23:14 Patient was seen in hospital lobby by security. Agree with documentation by forensic medical examiner.
== END 2017-12-02 21:02 | disposition home or self-care (01) | DRG 143 ==
LOC: ED 06:21 → ERH 08:45 → PSYC 09:20 → 5RNO 09:46
PROVIDERS: ADMIT Internal Medicine; ATTEND Internal Medicine
DX: R07.9 Chest pain, unspecified (principal); F19.20 Other psychoactive substance dependence, uncomplicated; F20.9 Schizophrenia, unspecified; R05 Cough; F41.0 Panic disorder [episodic paroxysmal anxiety]; G47.30 Sleep apnea, unspecified; I10 Essential (primary) hypertension; Z82.3 Family history of stroke; Z83.3 Family history of diabetes mellitus; Z86.718 Personal history of other venous thrombosis and embolism; Z87.01 Personal history of pneumonia (recurrent); Z87.891 Personal history of nicotine dependence

== ENCOUNTER 2017-12-14 14:34 | Emergency (ER) | payer OTHER ==
[2017-12-14 14:34] VITALS: BMI 52.9
[2017-12-14 15:59] LABS: URINE BILIRUBIN NEGATIVE (NEGATIVE); URINE BLOOD TRACE-INTACT (NEGATIVE); URINE GLUCOSE (UA) NEGATIVE (NEGATIVE); URINE LEUKOCYTE ESTERASE TRACE Leu/uL (NEGATIVE); URINE PROTEIN NEGATIVE mg/dL (<30 mg/dL); URINE UROBILINOGEN 0.2 E.U./dL (<1 E.U./dL)
--- NOTE | 2017-12-14 16:01 | ED PDOC ---
Arrival/HPI <Luke Hinojosa - Last Filed: 12/14/17 18:35> - General Historian: Patient - History of Present Illness Narrative History of Present Illness (Text): 12/14/17 15:56 This is a 47 year old female with PMH of DVT with left sided IVC filter NOT on anticoagulation, asthma (no intubation in past), HTN, polysubstance abuse, seizures who presents to the ED complaining of bilateral leg pain and swelling for the past 5 days. Pt is a poor historian. She states that she drove to [place] on 12/07/17 for longer than 4 hours, and back from [place] on 12/11/17. She was recently admitted for chest pain r/o ACS work up on 12/01-12/02, and was started on amlodipine 5 mg PO daily. Pt also endorses drinking 12 ounce water bottles x24 daily for the past year due to increased thirst and "dehydration." Pt has is ambulating, but complaining of a sharp pain to the left hip for the past couple of days. This pain is nonradiating. Pt denies fever, chills, chest pain, palpitations, abdominal pain, n/v/d, urinary symptoms, focal weakness, visual changes, dizziness, lightheadedness. Pt reports a cough productive of sputum mixed with green/black material. PMD: Dr. Heather Hou PMH: DVT with left sided IVC filter, asthma (no intubation in past), HTN PSH: abdominal surgery as child due to internal bleeding after injury Meds: See MAR Allx: See MAR Symptom Onset: Sudden Symptom Course: Worsening Quality: Pressure <Darion Mayen - Last Filed: 12/15/17 11:22> - General Chief Complaint: Lower Extremity Problem/Injury Time Seen by Provider: 12/14/17 14:37 Past Medical History - Provider Review Nursing Documentation Reviewed: Yes - Infectious Disease Hx of Infectious Diseases: None - Reproductive Menopause: No - Cardiac Hx Hypertension: Yes - Pulmonary Hx Asthma: Yes Hx Pneumonia: Yes Hx Sleep Apnea: Yes - Neurological Hx Seizures: Yes - HEENT Hx HEENT Disorder: No - Renal Hx Renal Disorder: No - Endocrine/Metabolic Hx Endocrine Disorders: No - Hematological/Oncological Hx Blood Disorders: No - Integumentary Hx Dermatological Disorder: No - Musculoskeletal/Rheumatological Hx Musculoskeletal Disorders: No - Gastrointestinal Hx Gastrointestinal Disorders: No - Genitourinary/Gynecological Hx Genitourinary Disorders: No - Psychiatric Hx Anxiety: Yes Hx Depression: Yes Hx Panic Disorder: Yes Hx Schizophrenia: Yes Hx Substance Use: Yes (PCP) - Surgical History Hx Appendectomy: No Hx Carotid Endarterectomy: No Hx Cholecystectomy: No Hx Coronary Artery Bypass Graft: No Hx Coronary Stent: No Hx Tonsillectomy: No - Anesthesia Hx Anesthesia: Yes Hx Anesthesia Reactions: No Hx Malignant Hyperthermia: No - Suicidal Assessment Feels Threatened In Home Enviroment: No <Darion Mayen - Last Filed: 12/15/17 11:22> Family/Social History - Physician Review Nursing Documentation Reviewed: Yes Family/Social History: Unknown Family HX Smoking Status: Former Smoker Hx Alcohol Use: Yes Hx Substance Use: Yes (PCP) Substance used: PCP <Darion Mayen - Last Filed: 12/15/17 11:22> Allergies/Home Meds <Luke Hinojosa - Last Filed: 12/14/17 18:35> <Darion Mayen - Last Filed: 12/15/17 11:22> Allergies/Adverse Reactions: Allergies acetaminophen [From Tylenol] Allergy (Intermediate, Verified 12/14/17 15:21) URTICARIA mushroom Allergy (Intermediate, Verified 12/14/17 15:21) SWELLING strawberry Allergy (Intermediate, Verified 12/14/17 15:21) SWELLING ivory so Allergy (Mild, Uncoded 12/14/17 15:21) ITCHING Review of Systems - Review of Systems Constitutional: Normal Respiratory: Cough, Sputum Cardiovascular: Chest Pain (adm on 12/01) Gastrointestinal: Normal Genitourinary Female: Normal Musculoskeletal: Other (left hip pain) Skin: Normal Neurological: absent: Headache, Dizziness, Focal Weakness, Speech Changes Endocrine: Polyuria, Polydipsia Hemo/Lymphatic: Other (diffuse bruising on the abdomen and hip) Psychiatric: Anxiety <Darion Mayen - Last Filed: 12/15/17 11:22> Physical Exam Vital Signs Temp Pulse Resp BP Pulse Ox 12/14/17 14:54 98.5 F 74 18 146/98 H 91 L <Luke Hinojosa - Last Filed: 12/14/17 18:35> Vital Signs Reviewed: Yes Vital Signs Temp Pulse Resp BP Pulse Ox 12/14/17 14:54 98.5 F 74 18 146/98 H 91 L Temperature: Afebrile Blood Pressure: Hypertensive Pulse: Regular Respiratory Rate: Normal (O2 sat is 98% on RA) Appearance: Positive for: Non-Toxic Pain Distress: None Mental Status: Positive for: Alert and Oriented X 3, Agitated - Systems Exam Head: Present: Atraumatic, Normocephalic Pupils: Present: PERRL (dilated but reactive) Extroacular Muscles: Present: EOMI Mouth: Present: Moist Mucous Membranes Nose (External): Present: Atraumatic Nose (Internal): Present: Moist, Edematous, Clear Mucous. No: No Active Bleeding, Epistaxis Respiratory/Chest: Present: Clear to Auscultation. No: Respiratory Distress, Accessory Muscle Use, Wheezes, Decreased Breath Sounds, Rales, Rhonchi Cardiovascular: Present: Regular Rate and Rhythm, Normal S1, S2 Abdomen: Present: Distention, Normal Bowel Sounds, Other (morbid obesity). No: Tenderness, Rebound, Guarding Upper Extremity: Present: Edema, NORMAL PULSES (2+ bilateral radial pulses) Lower Extremity: Present: Edema, NORMAL PULSES (2+ bilateral DPs). No: CALF TENDERNESS Neurological: Present: GCS=15, CN II-XII Intact, Speech Normal Skin: Present: Warm, Dry Psychiatric: Present: Alert, Anxious <Darion Mayen - Last Filed: 12/15/17 11:22> Medical Decision Making ED Course and Treatment: In agreement with resident note, which includes further HPI details. Patient was seen and evaluated with resident, came up with plan and treatment together. 12/14/17 18:26 The patient refuses further medical evaluation and testing and wishes to leave the Emergency Department against my medical advice. Patient was told that this testing is necessary and a full explanation of the reasons why was given, and understood by patient. The risks of leaving were explained and include worsening of condition, and permanent disability and from undiagnosed or untreated conditions. The patient accepts these risks, and is in my judgment is competent and capable of understanding the clinical situation and my explanation of the risks of leaving. Patient was given the opportunity to ask questions and change mind. The patient was instructed regarding the best care for the present symptoms, and to follow up with her primary care doctor as soon as possible, or return to the Emergency Department at any time for continuing care - Lab Interpretations Lab Results: Lab Results 12/14/17 15:30: Urine Color Yellow, Urine Appearance Clear, Urine pH 7.0, Ur Specific [place] <= 1.005, Urine Protein Negative, Urine Glucose (UA) Negative, Urine Ketones Negative, Urine Blood Trace-intact H, Urine Nitrate Negative, Urine Bilirubin Negative, Urine Urobilinogen 0.2, Ur Leukocyte Esterase Trace H, Urine RBC 2 - 5, Urine WBC 1 - 3, Ur Epithelial Cells 4 - 5, Urine Bacteria Few - RAD Interpretation Radiology Orders: 12/14/17 15:30 DUPLEX LOWER EXTRM VEIN BILAT [US] Stat 12/14/17 15:50 ANGIO CHEST PE PROTOCOL [CT] Stat - EKG Interpretation EKG Interpretation (Text): 12/14/17 16:35 ekg my read: nsr at 79 bpm, nml qrs, nml axis, no acute sttw abn Interpreted by ED Physician: Yes <Luke Hinojosa - Last Filed: 12/14/17 18:35> ED Course and Treatment: Urine test, urine drug screen, UA, CBC, CMP, EKG, bilateral lower extremity duplex, CT chest angio r/o PE. 12/14/17 16:20 Bilateral lower extremity doppler US is negative (see report) 12/14/17 18:14 RN, attending unable to place line in pt for lab draw and IV contrast for Chest CT angio. Pt reports that she does not want to be "stuck again." She would like to go home. I stressed to the pt the need for further studies to rule out life threatening conditions but she does not want any further work up. I discussed with her the risks of leaving prior to leaving against medical advice today; including but not limited to, cardiopulmonary decompensation, . Pt would like to sign out of the ED against medical advice. I stressed the importance of follow up with her PMD (Ameya), she agrees and states that she will go tomorrow. - RAD Interpretation Radiology Orders: 12/14/17 15:30 DUPLEX LOWER EXTRM VEIN BILAT [US] Stat 12/14/17 15:50 ANGIO CHEST PE PROTOCOL [CT] Stat <Darion Mayen - Last Filed: 12/15/17 11:22> Disposition/Present on Arrival <Luke Hinojosa - Last Filed: 12/14/17 18:35> - Present on Arrival Any Indicators Present on Arrival: Yes History of DVT/PE: Yes History of Uncontrolled Diabetes: No Urinary Catheter: No History of Decub. Ulcer: No History Surgical Site Infection Following: None - Disposition Have Diagnosis and Disposition been Completed?: Yes Disposition Time: 18:14 <Darion Mayen - Last Filed: 12/15/17 11:22> - Disposition Diagnosis: Swelling Disposition: AGAINST MEDICAL ADVICE Condition: STABLE Forms: [employer] (Iranian)
[2017-12-14 16:04] LABS: URINE APPEARANCE CLEAR (CLEAR); URINE COLOR YELLOW (YELLOW)
[2017-12-14 16:17] LABS: URINE BACTERIA FEW (NEG)
--- NOTE | 2017-12-14 16:44 | US ---
HISTORY: Leg pain and swelling. Evaluate for DVT PHYSICIAN(S): Catarino Fitch MD. TECHNIQUE: Duplex sonography and color-flow Doppler with graded compression were used to evaluate the deep venous systems of both lower extremities. FINDINGS: The visualized deep venous systems of both lower extremities are sonographically normal and compressible. Normal wave forms and augmentation are seen. There is no sonographic evidence for deep venous thrombosis in the visualized segments of both lower extremities. IMPRESSION: No sonographic evidence for deep venous thrombosis in the visualized segments of both lower extremities.
[2017-12-14 17:42] LABS: BARBITURATES, UR NEGATIVE (NEGATIVE)
[2017-12-14 17:45] LABS: BENZODIAZEPINES, UR NEGATIVE (NEGATIVE); OPIATES, UR NEGATIVE (NEGATIVE); PHENCYCLIDINE, UR POSITIVE (NEGATIVE)
--- NOTE | 2017-12-14 17:50 | CARD ---
APPROVED REPORT Date of service: 12/14/2017 EKG Measurement Heart [id number] MD [id number] <Conclusion> Poor data quality, interpretation may be adversely affected Normal sinus rhythm Prolonged QT Abnormal ECG
[2017-12-14 18:37] VITALS: BP 152/89; PULSE 81; RESP 19; TEMP 98.3; O2SAT 96
== END 2017-12-14 18:08 | disposition left against medical advice (07) ==
LOC: ED 14:34
DX: M79.89 Other specified soft tissue disorders (principal); I10 Essential (primary) hypertension; Z86.718 Personal history of other venous thrombosis and embolism; F19.10 Other psychoactive substance abuse, uncomplicated; Z87.891 Personal history of nicotine dependence

== ENCOUNTER 2017-12-25 09:17 | Observation (INO) | payer OTHER ==
--- NOTE | 2017-12-25 10:39 | ED PDOC ---
Arrival/HPI - General Chief Complaint: Anxiety Time Seen by Provider: 12/25/17 09:36 Historian: Patient - History of Present Illness Narrative History of Present Illness (Text): 12/25/17 10:36 47-year-old female with a history of TIA presents today with left-sided facial numbness left arm and leg numbness. Patient states symptoms started around 5:00 in the morning resolved and then started again prior to arriving in the emerge ncy room and then resolved again. Patient denies chest pain or shortness of breath. No fevers or chills. Patient denies headaches dizziness or weakness. No fevers or chills. No urinary symptoms. No abdominal pain. No other complaints Time/Duration: Other (5am) Symptom Course: Resolved, Intermittent Quality: Other (numbness) Past Medical History - Provider Review Nursing Documentation Reviewed: Yes - Travel History Have you recently traveled outside [place] w/in the past 3 mons?: No - Infectious Disease Hx of Infectious Diseases: None - Cardiac Hx Hypertension: Yes - Pulmonary Hx Asthma: Yes Hx Pneumonia: Yes Hx Sleep Apnea: Yes - Neurological Hx Seizures: Yes - HEENT Hx HEENT Disorder: No - Renal Hx Renal Disorder: No - Endocrine/Metabolic Hx Endocrine Disorders: No - Hematological/Oncological Hx Blood Disorders: No - Integumentary Hx Dermatological Disorder: No - Musculoskeletal/Rheumatological Hx Musculoskeletal Disorders: No - Gastrointestinal Hx Gastrointestinal Disorders: No - Genitourinary/Gynecological Hx Genitourinary Disorders: No - Psychiatric Hx Anxiety: Yes Hx Depression: Yes Hx Panic Disorder: Yes Hx Schizophrenia: Yes Hx Substance Use: Yes (PCP) - Surgical History Hx Appendectomy: No Hx Carotid Endarterectomy: No Hx Cholecystectomy: No Hx Coronary Artery Bypass Graft: No Hx Coronary Stent: No Hx Tonsillectomy: No - Anesthesia Hx Anesthesia: Yes Hx Anesthesia Reactions: No Hx Malignant Hyperthermia: No - Suicidal Assessment Feels Threatened In Home Enviroment: No Family/Social History - Physician Review Nursing Documentation Reviewed: Yes Family/Social History: Unknown Family HX Smoking Status: Former Smoker Hx Alcohol Use: Yes Hx Substance Use: Yes (PCP) Substance used: PCP Allergies/Home Meds Allergies/Adverse Reactions: Allergies acetaminophen [From Tylenol] Allergy (Intermediate, Verified 12/14/17 15:21) URTICARIA mushroom Allergy (Intermediate, Verified 12/14/17 15:21) SWELLING strawberry Allergy (Intermediate, Verified 12/14/17 15:21) SWELLING ivory so Allergy (Mild, Uncoded 12/14/17 15:21) ITCHING Review of Systems - Review of Systems Constitutional: absent: Fatigue, Fevers Respiratory: absent: SOB, Cough Cardiovascular: absent: Chest Pain, Palpitations Gastrointestinal: absent: Abdominal Pain, Constipation, Diarrhea, Nausea, Vomiting Musculoskeletal: Other (numbness). absent: Arthralgias, Back Pain, Neck Pain Skin: absent: Rash, Pruritis Neurological: absent: Headache, Dizziness Psychiatric: absent: Anxiety, Depression, Suicidal Ideation Physical Exam Vital Signs Reviewed: Yes Vital Signs Temp Pulse Resp BP Pulse Ox 12/25/17 09:24 98.9 F 85 20 137/96 H 95 Temperature: Afebrile Blood Pressure: Hypertensive Pulse: Regular Respiratory Rate: Normal Appearance: Positive for: Well-Appearing, Non-Toxic, Comfortable Pain Distress: None Mental Status: Positive for: Alert and Oriented X 3 Finger Stick Blood Glucose: 157 - Systems Exam Head: Present: Atraumatic Mouth: Present: Moist Mucous Membranes Neck: Present: Normal Range of Motion Respiratory/Chest: Present: Clear to Auscultation, Good Air Exchange. No: Respiratory Distress, Accessory Muscle Use Cardiovascular: Present: Regular Rate and Rhythm, Normal S1, S2. No: Murmurs Abdomen: No: Tenderness, Distention, Peritoneal Signs, Rebound, Guarding Back: Present: Normal Inspection Upper Extremity: Present: Normal Inspection, Normal ROM Lower Extremity: Present: Normal Inspection, Normal ROM Neurological: Present: GCS=15, Speech Normal, Motor Func Grossly Intact, Normal Sensory Function Skin: Present: Warm, Dry, Normal Color Psychiatric: Present: Alert, Oriented x 3 Medical Decision Making ED Course and Treatment: 12/25/17 10:40 47yr old female with hx of TIA with left sided numbness, anxiety, resolved at present time. patient with left sided numbness that resolved. pt with psych history; stopped taking anxiety medications 2 weeks ago. stopped taking antipsyc cbc; wnl cmp wnl trop wnl INR wnl UA wnl head ct; FINDINGS: HEMORRHAGE: No intracranial hemorrhage. BRAIN: No mass effect or edema. Mild scattered white matter hypodensities, which are nonspecific, but often seen with chronic microvascular ischemic disease. Please note that MRI with diffusion imaging is more sensitive in the detection of acute ischemic event. VENTRICLES: No hydrocephalus. CALVARIUM: Unremarkable. PARANASAL SINUSES: Unremarkable as visualized. No significant inflammatory changes. MASTOID AIR CELLS: Unremarkable as visualized. No inflammatory changes. OTHER FINDINGS: None. IMPRESSION: Mild scattered nonspecific white matter changes as above. cxr; wnl ekg; accelerated junctional rhythm at [address] elevations QTC 494 asa given pO. case discussed with dr. orellana; accepts observational status admission for resolved left sided numbness. impression; left sided numbness admit observational status remote tele. - Lab Interpretations Lab Results: Lab Results 12/25/17 09:21: POC Glucose (mg/dL) 157 H - RAD Interpretation Radiology Orders: 12/25/17 10:07 HEAD W/O CONTRAST [CT] Stat NIHSS Scale ([place]) Time Performed: 10:30 - How Severe is the [place]oke Baseline Level of Consciousness: 0=Alert LOC to Questions: 0=Both comments correct LOC to commands: 0=Obeys both correctly Best Gaze: 0=Normal Visual: 0=No visual loss Facial: 0=Normal Motor Arm - Left: 0=No drift Motor Arm - Right: 0=No drift Motor Leg - Left: 0=No drift Motor Leg - Right: 0=No drift Limb Ataxia: 0=Absent Sensory: 0=Normal Best Language: 0=No aphasia Dysarthia: 0=Normal articulation Extinction & Inattention (Neglect): 0=Normal, no object Score: 0 Risk Level: No Stroke Risk rTPA Inclusion/Exclusion - Inclusion Criteria for Altepase Patient is 18 years or Older: Yes The Clinical Diagnosis of Ischemic Stroke That is Causing a Potentially Disabling Neurological Deficit: No Time of Onset is Well Established to be Less Than 270 Minute Before Treatment Would Begin: Yes Risk/Benefit Discussed With Patient/Family Member Present: No Disposition/Present on Arrival - Present on Arrival Any Indicators Present on Arrival: Yes History of DVT/PE: Yes History of Uncontrolled Diabetes: No Urinary Catheter: No History of Decub. Ulcer: No History Surgical Site Infection Following: None - Disposition Have Diagnosis and Disposition been Completed?: Yes Diagnosis: TIA (transient ischemic attack) Disposition: HOSPITALIZED Disposition Time: 10:43 Patient Plan: Observation Patient Problems: Current Active Problems Problem Status Onset TIA (transient ischemic attack) Acute Condition: FAIR Forms: [employer] (Uzbek)
[2017-12-25] MEDS ORDERED: Sodium Chloride 0.9% 1,000 ML IV SCH (10:45)
[2017-12-25 11:28] LABS: BASO # 0.04 K/mm3 (0.0-2.0); BASO % 0.4 % (0.0-3.0); EOS # 0.2 (0.0-0.7); EOS % 2.1 % (1.5-5.0); GRAN # 6.17 (1.4-6.5); GRAN % 60.5 % (50.0-68.0); HEMOGLOBIN 13.8 g/dL (12.0-16.0); LYMPH # 3.2 (1.2-3.4); LYMPH % 31.3 % (22.0-35.0); MEAN CELL VOLUME 87.8 fl (80.0-105.0); MEAN CORPUSCULAR HEMOGLOBIN 29.4 pg (25.0-35.0); MEAN CORPUSCULAR HGB CONC 33.5 g/dl (31.0-37.0); MEAN PLATELET VOLUME 10.3 fl (7.0-11.0); MONO # 0.6 (0.1-0.6); MONO % 5.7 % (1.0-6.0); RBC 4.69 10^6/uL (3.5-6.1); RED CELL DISTRIBUTION WIDTH 13.3 % (11.5-14.5); WHITE BLOOD COUNT 10.2 10^3/uL (4.5-11.0)
[2017-12-25 11:41] LABS: ACETAMINOPHEN < 10.0 ug/ml (10.0-20.0); SALICYLATE 3 mg/dL (2.0-20.0)
[2017-12-25 11:44] LABS: ALB/GLOB RATIO 1.1 (1.1-1.8); ALBUMIN 3.7 g/dL (3.0-4.8); ALT/SGPT 35 U/L (7-56); AST/SGOT 27 U/L (14-36); BLOOD UREA NITROGEN 17 mg/dL (7-21); CALCIUM 9.3 mg/dL (8.4-10.5); GFR NON-AFRICAN AMERICAN > 60; HDL CHOLESTEROL 45 mg/dL (29-60)
[2017-12-25 11:51] LABS: LDL CHOLESTEROL 134 mg/dL (0-129); TROPONIN I < 0.01 ng/mL
[2017-12-25 12:02] LABS: INR 1.05; PARTIAL THROMBOPLASTIN TIME 26.7 Seconds (25.1-36.5); PROTHROMBIN TIME 12.1 SECONDS (9.4-12.5)
[2017-12-25 13:15] LABS: URINE BILIRUBIN NEGATIVE (NEGATIVE); URINE BLOOD NEGATIVE (NEGATIVE); URINE GLUCOSE (UA) NEGATIVE (NEGATIVE); URINE LEUKOCYTE ESTERASE NEGATIVE Leu/uL (NEGATIVE); URINE PROTEIN NEGATIVE mg/dL (<30 mg/dL); URINE UROBILINOGEN 0.2 E.U./dL (<1 E.U./dL)
[2017-12-25 13:23] LABS: URINE APPEARANCE CLEAR (CLEAR)
--- NOTE | 2017-12-25 13:54 | CT ---
Date of service: 12/25/2017 PROCEDURE: CT HEAD WITHOUT CONTRAST. HISTORY: left sided numbness COMPARISON: Noncontrast head CT performed 08/09/17 TECHNIQUE: Axial computed tomography images were obtained through the head/brain without intravenous contrast. Radiation dose: Total exam DLP = 952.3 mGy-cm. This CT exam was performed using one or more of the following dose reduction techniques: Automated exposure control, adjustment of the mA and/or kV according to patient size, and/or use of iterative reconstruction technique. FINDINGS: HEMORRHAGE: No intracranial hemorrhage. BRAIN: No mass effect or edema. Mild scattered white matter hypodensities, which are nonspecific, but often seen with chronic microvascular ischemic disease. Please note that MRI with diffusion imaging is more sensitive in the detection of acute ischemic event. VENTRICLES: No hydrocephalus. CALVARIUM: Unremarkable. PARANASAL SINUSES: Unremarkable as visualized. No significant inflammatory changes. MASTOID AIR CELLS: Unremarkable as visualized. No inflammatory changes. OTHER FINDINGS: None. IMPRESSION: Mild scattered nonspecific white matter changes as above.
--- NOTE | 2017-12-25 13:57 | RAD ---
HISTORY: left sided numbness COMPARISON: Chest x-ray performed 12/01/17 TECHNIQUE: Chest, one view. FINDINGS: Examination limited by habitus. LUNGS: Left costophrenic angle is incompletely imaged. No focal consolidation. Please note that chest x-ray has limited sensitivity for the detection of pulmonary masses. PLEURA: No significant pleural effusion identified. No definite pneumothorax . CARDIOVASCULAR: Heart size appears within normal limits. Atherosclerotic calcifications of the aorta. OSSEOUS STRUCTURES: No acute osseous abnormality identified. VISUALIZED UPPER ABDOMEN: Unremarkable. OTHER FINDINGS: None. IMPRESSION: No focal consolidation.
--- NOTE | 2017-12-25 14:31 | CP.PCM.HP ---
<Lula Flores - Last Filed: 12/25/17 16:42> History of Present Illness - History of Present Illness History of Present Illness: PGY-[address] Wahl CC: TIA vs stroke (obs) Ms Bhat, 47 F, with PMHx former smoker, poly-substance abuse (cocaine/PCP), recent L "eye stroke" requiring intraorbital injection (2 series recently), TIA (2 years ago), seizure (alcohol related, 5 years ago), COPD on home O2 for a while, obesity (BMI 33), and DVT (s/p IVC filter 2 years ago, never removed) complained of left-sided facial numbness left arm and leg numbness about 4 and a half hour prior to ED arrival. The left arm/leg numbness started at 5:00AM, then resolved after several minutes; started again prior to arriving in the emergency room and then resolved again; started again during my interview and resolved in several minutes. She was recently admitted to [facility] [place] 3 weeks ago for pneumonia. Her UTox 3 weeks ago was positive for cocaine and PCP. She was discharged home with continous home O2 2L but O2 was not renewed recently. 2 weeks ago, she was diagnosed with E-coli UTI, finished the course of keflex. No recent travel. ROS: Denies [place], dizziness, weakness, fever, chills, chest pain, SOB. No urinary symptoms. No N/V/D/C abdominal pain. No recent travel. Upon ED arrival, T 98.9, HR 85, 137/96, RR30, 95%RA CBC unremarkable (WBC 10, Hb 13.8, plt 282). Coags normal CMP unremarkable (Na 138, K 4.2, Bicarb 32, Bun 17, Cre 0.7) glucose 136 Trops < 0.01, Total chol 192, LDL 124, Tg 182, HDL 45 NIHSS 0 in ED U/A neg, Urine drug screen____pending collection , MANISH < 10, tylenol < 10, Urine test____pending collection Head CT: mild scattered nonspecific whilte matter changes EKG: junctional rhythm @ 78, non-specific TW changes, QTc 494 CXR: No focal consolidation PMHx poly Substance abuse (Cocaine, PCP), former smoker (quit 6 month ago) L "eye stroke" requiring intraorbital injection (2 series recently) TIA, 2 years ago Seizure, ETOH related, more than 5 years ago Obesity (BMI 33) COPD, requiring 2L NC after discharge from [facility] [place] for Pneumonia, Nov 2017 sleep apnea Hx DVT s/p IVC filter, not on anticoagulant Schizophrenia, depression, anxiety Chronic back pain OBGYN 5 times. 2 surgical . 3 live Older Son in 30s; middle daughter in 20s; Youngest daughter 13 Regular monthly menstruation, LMP last month, lasting 3-4 days, medium flow PSH IVC filter, 2 years ago, never removed fistula, "hole in colon" s/p open laparotomy in childhood FH: Mother 48 DM, 7xMI, HD, Father 84, CVA Denies FH of blood disorder, clot disease SH: Tobacco quit 6 months ago, 1ppd since age 14 Alcohol "only on Thanksgiving and Poca" Ambulation with cane or walker occasionally due to back pain On SSI, not employed Live with , not legally , just common-law. Youngest daughter lives with pt's dad All Acetaminophen = urticaria Mushroom, strawberry = swelling Ivory soap = itch PMD: Dr Heather Starr, [facility] Eye doctor: [facility], [facility] Present on Admission - Present on Admission Any Indicators Present on Admission: No Past Patient History - Infectious Disease Hx of Infectious Diseases: None - Past Medical History & Family History Past Medical History?: Yes - Past Social History Smoking Status: Former Smoker - CARDIAC Hx Hypertension: Yes - PULMONARY Hx Asthma: Yes Hx Pneumonia: Yes Hx Sleep Apnea: Yes - NEUROLOGICAL Hx Seizures: Yes - HEENT Hx HEENT Problems: No - RENAL Hx Chronic Kidney Disease: No - ENDOCRINE/METABOLIC Hx Endocrine Disorders: No - HEMATOLOGICAL/ONCOLOGICAL Hx Blood Disorders: No - INTEGUMENTARY Hx Dermatological Problems: No - MUSCULOSKELETAL/RHEUMATOLOGICAL Hx Musculoskeletal Disorders: No - GASTROINTESTINAL Hx Gastrointestinal Disorders: No - GENITOURINARY/GYNECOLOGICAL Hx Genitourinary Disorders: No - PSYCHIATRIC Hx Anxiety: Yes Hx Depression: Yes Hx Panic Symptoms: Yes Hx Schizophrenia: Yes Hx Substance Use: Yes (PCP) - SURGICAL HISTORY Hx Appendectomy: No Hx Carotid Endarterectomy: No Hx Cholecystectomy: No Hx Coronary Artery Bypass Graft: No Hx Coronary Stent: No Hx Tonsillectomy: No - ANESTHESIA Hx Anesthesia: Yes Hx Anesthesia Reactions: No Hx Malignant Hyperthermia: No Meds Allergies/Adverse Reactions: Allergies Allergy/AdvReac Type Severity Reaction Status Date / Time acetaminophen [From Tylenol] Allergy Intermediate URTICARIA Verified 12/14/17 15:21 mushroom Allergy Intermediate SWELLING Verified 12/14/17 15:21 strawberry Allergy Intermediate SWELLING Verified 12/14/17 15:21 ivory so Allergy Mild ITCHING Uncoded 12/14/17 15:21 Physical Exam - Constitutional Appears: No Acute Distress Additional comments: Obese - Head Exam Head Exam: ATRAUMATIC, NORMAL INSPECTION, NORMOCEPHALIC - Eye Exam Eye Exam: EOMI, Normal appearance, PERRL. absent: Scleral icterus Pupil Exam: NORMAL ACCOMODATION - ENT Exam ENT Exam: Mucous Membranes Moist - Neck Exam Additional comments: supple - Respiratory Exam Respiratory Exam: Clear to Auscultation Bilateral, NORMAL BREATHING PATTERN. absent: Rales, Rhonchi, Wheezes Additional comments: On room air, able to speak/complete several sentences without pauses - Cardiovascular Exam Cardiovascular Exam: REGULAR RHYTHM, +S1, +S2. absent: Systolic Murmur - GI/Abdominal Exam GI & Abdominal Exam: Normal Bowel Sounds, Soft. absent: Distended, Firm, Guarding, Rigid, Tenderness Additional comments: Scar in midline healed well, since childhood - Extremities Exam Extremities exam: Positive for: normal capillary refill, pedal edema (2+ pitting), pedal pulses present. Negative for: calf tenderness - Neurological Exam Neurological exam: Alert, Oriented x3 Additional comments: AAOx3 No slurr speech Move all extremities equally See NIHSS appended to this report - Psychiatric Exam Psychiatric exam: Anxious - Skin Skin Exam: Dry, Warm Results - Vital Signs Recent Vital Signs: Last Vital Signs Temp 98.4 F 12/25/17 13:04 Pulse 82 12/25/17 13:04 Resp 18 12/25/17 13:04 BP 137/96 H 12/25/17 09:24 Pulse Ox 99 12/25/17 13:04 - Labs Result Diagrams: 12/25/17 11:07 12/25/17 11:07 Labs: Laboratory Results - last 24 hr 12/25/17 12/25/17 12/25/17 09:21 11:07 11:07 WBC 10.2 RBC 4.69 Hgb 13.8 Hct 41.2 MCV 87.8 MCH 29.4 MCHC 33.5 RDW 13.3 Plt Count 282 MPV 10.3 Gran % 60.5 Lymph % (Auto) 31.3 [place] % (Auto) 5.7 Eos % (Auto) 2.1 Baso % (Auto) 0.4 Gran # 6.17 Lymph # (Auto) 3.2 [place] # (Auto) 0.6 Eos # (Auto) 0.2 Baso # (Auto) 0.04 PT INR APTT Sodium 138 Potassium 4.3 Chloride 102 Carbon Dioxide 32 Anion Gap 8 L BUN 17 Creatinine 0.7 Est GFR ( Amer) > 60 Est GFR (Non-Af Amer) > 60 POC Glucose (mg/dL) 157 H Random Glucose 136 H Calcium 9.3 Total Bilirubin 0.3 AST 27 ALT 35 Alkaline Phosphatase 85 Troponin I < 0.01 Total Protein 6.9 Albumin 3.7 Globulin 3.2 Albumin/Globulin Ratio 1.1 Triglycerides 182 H Cholesterol 192 LDL Cholesterol Direct 134 H HDL Cholesterol 45 Urine Color Urine Appearance Urine pH Ur Specific [place] Urine Protein Urine Glucose (UA) Urine Ketones Urine Blood Urine Nitrate Urine Bilirubin Urine Urobilinogen Ur Leukocyte Esterase Salicylates Acetaminophen Alcohol, Quantitative 12/25/17 12/25/17 12/25/17 11:07 11:07 11:07 WBC RBC Hgb Hct MCV MCH MCHC RDW Plt Count MPV Gran % Lymph % (Auto) [place] % (Auto) Eos % (Auto) Baso % (Auto) Gran # Lymph # (Auto) [place] # (Auto) Eos # (Auto) Baso # (Auto) PT 12.1 INR 1.05 APTT 26.7 Sodium Potassium Chloride Carbon Dioxide Anion Gap BUN Creatinine Est GFR ( Amer) Est GFR (Non-Af Amer) POC Glucose (mg/dL) Random Glucose Calcium Total Bilirubin AST ALT Alkaline Phosphatase Troponin I Total Protein Albumin Globulin Albumin/Globulin Ratio Triglycerides Cholesterol LDL Cholesterol Direct HDL Cholesterol Urine Color Urine Appearance Urine pH Ur Specific [place] Urine Protein Urine Glucose (UA) Urine Ketones Urine Blood Urine Nitrate Urine Bilirubin Urine Urobilinogen Ur Leukocyte Esterase Salicylates 3 Acetaminophen < 10.0 L Alcohol, Quantitative < 10 12/25/17 12:53 WBC RBC Hgb Hct MCV MCH MCHC RDW Plt Count MPV Gran % Lymph % (Auto) [place] % (Auto) Eos % (Auto) Baso % (Auto) Gran # Lymph # (Auto) [place] # (Auto) Eos # (Auto) Baso # (Auto) PT INR APTT Sodium Potassium Chloride Carbon Dioxide Anion Gap BUN Creatinine Est GFR ( Amer) Est GFR (Non-Af Amer) POC Glucose (mg/dL) Random Glucose Calcium Total Bilirubin AST ALT Alkaline Phosphatase Troponin I Total Protein Albumin Globulin Albumin/Globulin Ratio Triglycerides Cholesterol LDL Cholesterol Direct HDL Cholesterol Urine Color yellow Urine Appearance Clear Urine pH 6.0 Ur Specific [place] >= 1.030 Urine Protein Negative Urine Glucose (UA) Negative Urine Ketones Negative Urine Blood Negative Urine Nitrate Negative Urine Bilirubin Negative Urine Urobilinogen 0.2 Ur Leukocyte Esterase Negative Salicylates Acetaminophen Alcohol, Quantitative Assessment & Plan - Assessment and Plan (Free Text) Plan: Ms Bhat, 47 F, with PMHx former smoker, poly-substance abuse (cocaine/PCP), recent L "eye stroke" requiring intraorbital injection (2 series recently), TIA (2 years ago), seizure (alcohol related, 5 years ago), COPD on home O2 for a while, obesity (BMI 33), and DVT (s/p IVC filter 2 years ago, never removed) complained of left-sided facial numbness left arm and leg numbness about 4 and a half hour prior to ED arrival. TIA vs stroke, likely thalamic/insular region. Unlikely peripheral neuropathy L side paresthesia - Daily ASA, statin - PT/OT - follow on B12, vit D, hypercoagulable work up - neuro & cardio consult - Echo with bubble - carotid doppler - MRI and MRA head/neck without contrast - neuro and vitals q4h - aspiration precaution Hyperlipidimia - Add lipitor Hyperglycemia - follow on A1C, insulin ISSS, accucheck junctional rhythm with prolong QTc 494 - echocardiogram - TSH, Free T4 - cardiology consult Hx poly-substance abuse (cocaine/PCP) - Pending UDS - Pending test COPD, stable LEELA - duoneb PRN - O2 PRN - Cpap HS if tolerated - home flonase Obesity with chronic back pain - pt endorsed that she was rejected by medicaid for bariatric surgery - dietian consult Prophylaxis - heparin SC due to hx clot. Low risk GI ulcer. s/r/d/w Dr Wahl NIHSS Stroke Scale - Date/Time Evaluation Performed Date Performed: 12/25/17 Time Performed: 15:00 When Was NIHSS Performed: Re-evaluation - How Severe is the Stroke Level of Consciousness: 0=Alert LOC to Questions: 0=Both comments correct LOC to commands: 0=Obeys both correctly Best Gaze: 0=Normal Visual: 0=No visual loss Facial: 0=Normal Motor Arm - Left: 0=No drift Motor Arm - Right: 0=No drift Motor Leg - Left: 0=No drift Motor Leg - Right: 0=No drift Limb Ataxia: 0=Absent Sensory: 1=Mild to moderate loss Best Language: 0=No aphasia Dysarthia: 0=Normal articulation Extinction & Inattention (Neglect): 0=Normal, no object Score: 1 <Karen Wahl - Last Filed: 12/27/17 15:49> Results - Vital Signs Recent Vital Signs: Last Vital Signs Temp 98.6 F 12/27/17 08:32 Pulse 99 H 12/27/17 14:00 Resp 20 12/27/17 08:32 BP 170/106 H 12/27/17 11:06 Pulse Ox 100 12/27/17 08:32 - Labs Result Diagrams: 12/27/17 06:00 12/27/17 06:00 Labs: Laboratory Results - last 24 hr 12/25/17 12/26/17 12/26/17 21:08 05:30 05:30 WBC RBC Hgb Hct MCV MCH MCHC RDW Plt Count MPV Gran % Lymph % (Auto) [place] % (Auto) Eos % (Auto) Baso % (Auto) Gran # Lymph # (Auto) [place] # (Auto) Eos # (Auto) Baso # (Auto) Sodium Potassium Chloride Carbon Dioxide Anion Gap BUN Creatinine Est GFR ( Amer) Est GFR (Non-Af Amer) POC Glucose (mg/dL) 149 H Random Glucose Calcium Total Bilirubin AST ALT Alkaline Phosphatase Total Protein Albumin Globulin Albumin/Globulin Ratio Homocysteine 6.9 Double Strand DNA Ab <1 Anti-Cardiolipin IgG Ab <14 Anti-Cardiolipin IgA Ab <11 Anti-Cardiolipin IgM Ab <12 12/26/17 12/26/17 12/26/17 07:26 16:52 20:58 WBC RBC Hgb Hct MCV MCH MCHC RDW Plt Count MPV Gran % Lymph % (Auto) [place] % (Auto) Eos % (Auto) Baso % (Auto) Gran # Lymph # (Auto) [place] # (Auto) Eos # (Auto) Baso # (Auto) Sodium Potassium Chloride Carbon Dioxide Anion Gap BUN Creatinine Est GFR ( Amer) Est GFR (Non-Af Amer) POC Glucose (mg/dL) 143 H 137 H 165 H Random Glucose Calcium Total Bilirubin AST ALT Alkaline Phosphatase Total Protein Albumin Globulin Albumin/Globulin Ratio Homocysteine Double Strand DNA Ab Anti-Cardiolipin IgG Ab Anti-Cardiolipin IgA Ab Anti-Cardiolipin IgM Ab 12/27/17 12/27/17 12/27/17 06:00 06:00 07:29 WBC 11.8 H D RBC 4.64 Hgb 13.4 Hct 41.0 MCV 88.4 MCH 28.9 MCHC 32.7 RDW 13.2 Plt Count 260 MPV 11.0 Gran % 58.4 Lymph % (Auto) 33.9 [place] % (Auto) 5.5 Eos % (Auto) 1.9 Baso % (Auto) 0.3 Gran # 6.89 H Lymph # (Auto) 4.0 H [place] # (Auto) 0.7 H Eos # (Auto) 0.2 Baso # (Auto) 0.04 Sodium 138 Potassium 3.9 Chloride 103 Carbon Dioxide 28 Anion Gap 11 BUN 16 Creatinine 0.6 L Est GFR ( Amer) > 60 Est GFR (Non-Af Amer) > 60 POC Glucose (mg/dL) 155 H Random Glucose 178 H Calcium 8.6 Total Bilirubin 0.3 AST 23 ALT 35 Alkaline Phosphatase 111 Total Protein 6.9 Albumin 3.6 Globulin 3.3 Albumin/Globulin Ratio 1.1 Homocysteine Double Strand DNA Ab Anti-Cardiolipin IgG Ab Anti-Cardiolipin IgA Ab Anti-Cardiolipin IgM Ab 12/27/17 11:22 WBC RBC Hgb Hct MCV MCH MCHC RDW Plt Count MPV Gran % Lymph % (Auto) [place] % (Auto) Eos % (Auto) Baso % (Auto) Gran # Lymph # (Auto) [place] # (Auto) Eos # (Auto) Baso # (Auto) Sodium Potassium Chloride Carbon Dioxide Anion Gap BUN Creatinine Est GFR ( Amer) Est GFR (Non-Af Amer) POC Glucose (mg/dL) 256 H Random Glucose Calcium Total Bilirubin AST ALT Alkaline Phosphatase Total Protein Albumin Globulin Albumin/Globulin Ratio Homocysteine Double Strand DNA Ab Anti-Cardiolipin IgG Ab Anti-Cardiolipin IgA Ab Anti-Cardiolipin IgM Ab Attending/Attestation - Attestation I have personally seen and examined this patient.: Yes I have fully participated in the care of the patient.: Yes I have reviewed all pertinent clinical information: Yes Notes (Text): 12/27/17 15:48 Medical record note made by the resident after discussion with my direction and input after the patient was personally seen and examined by me. I have reviewed the chart and agree that the record accurately reflects by personal performance of the history, physical exam, data review, and medical decision-making, in the course for the patient. I have also personally directed the plan of care. 47 F, with PMHx former smoker, poly-substance abuse (cocaine/PCP), TIA (2 years ago), seizure (alcohol related, 5 years ago), COPD,obesity (BMI 33), .H/O DVT (s/p IVC filter 2 years ago, never removed) was admitted with left-sided facial numbness left arm and leg numbness about 4 and a half hour prior to ED arrival. CT head is negative. Wew ill admmit patient in telemetry to monitor for arrythmia, we will monitor Neuro check. We will get MRI of Brain ,Echo and will get Neurology consult.
[2017-12-25] MEDS ORDERED: Albuterol-Ipratrop 3 mg / 0.5 (3 ml) UD IH PRN (16:41)
[2017-12-25 16:51] VITALS: BMI 32.9
[2017-12-25] MEDS: Insulin Reg-LOW-Coverage SC SCH (21:49)
--- NOTE | 2017-12-25 22:20 | CARD ---
APPROVED REPORT Date of service: 12/25/2017 EKG Measurement Heart [id number] <Conclusion> Normal sinus rhythm Nonspecific T wave abnormality Prolonged QT Abnormal ECG
[2017-12-26 05:43] LABS: BARBITURATES, UR NEGATIVE (NEGATIVE); BENZODIAZEPINES, UR NEGATIVE (NEGATIVE); OPIATES, UR NEGATIVE (NEGATIVE); PHENCYCLIDINE, UR POSITIVE (NEGATIVE)
[2017-12-26] MEDS ORDERED: Metoprolol 1 mg/ml Inj IVP ONE (06:16)
[2017-12-26 07:09] LABS: BASO # 0.04 K/mm3 (0.0-2.0); BASO % 0.4 % (0.0-3.0); EOS # 0.2 (0.0-0.7); EOS % 2.4 % (1.5-5.0); GRAN # 4.61 (1.4-6.5); GRAN % 49.8 % (50.0-68.0); HEMOGLOBIN 13.5 g/dL (12.0-16.0); LYMPH # 3.9 (1.2-3.4); LYMPH % 42.1 % (22.0-35.0); MEAN CELL VOLUME 88.8 fl (80.0-105.0); MEAN CORPUSCULAR HGB CONC 32.7 g/dl (31.0-37.0); MEAN PLATELET VOLUME 10.9 fl (7.0-11.0); MONO # 0.5 (0.1-0.6); MONO % 5.3 % (1.0-6.0); RBC 4.65 10^6/uL (3.5-6.1); RED CELL DISTRIBUTION WIDTH 13.3 % (11.5-14.5); WHITE BLOOD COUNT 9.3 10^3/uL (4.5-11.0)
[2017-12-26 07:18] LABS: FREE T4 0.99 ng/dL (0.78-2.19)
[2017-12-26] MEDS: Insulin Reg-LOW-Coverage SC SCH ×4 (08:12→22:00)
[2017-12-26 08:16] VITALS: RESP 20
[2017-12-26] MEDS: Fluticasone Nasal 50 mcg/Spray NS SCH (09:21)
--- NOTE | 2017-12-26 09:56 | CP.PCM.CON ---
History of Present Illness - History of Present Illness History of Present Illness: Neurology Consult Note for Dr. Elkins Patient is a 47 y F with PMH of TIA (2 yrs ago), recent L "eye stroke" requiring intraorbital injection, EtOH-related seizure, COPD, DVT s/p IVC filter, and polysubstance abuse presented to [facility] complaining of left-sided facial numbness and left arm and leg numbness while at rest, prior to arrival to the ED, and was on and off while in the ED. Patient states that her left left sided weakness is about the same today as it was on arrival. Patient denies any prior occurrences and did not know she had a TIA in the past until it was found on imagining. Patient denies any LOC, CP, SOB, n/v/d, abdominal pain, fever, chills, [place], or dizziness. PMH: TIA (2 yrs ago), recent L "eye stroke" requiring intraorbital injection, EtOH-related seizure, COPD, DVT s/p IVC filter, and polysubstance abuse Surg: IVC filter, exlap for perforated colon All: Tylenol, mushroom, strawberry SH: Former smoker, social EtOH; cocaine and PCP use FH: Mother 48 DM, 7xMI, HD, Father 84, CVA Review of Systems - Review of Systems All systems: reviewed and no additional remarkable complaints except (12 point ROS reviewed and is negative other than what is stated in HPI.) Past Patient History - Infectious Disease Hx of Infectious Diseases: None - Past Medical History & Family History Past Medical History?: Yes - Past Social History Smoking Status: Former Smoker - CARDIAC Hx Hypertension: Yes - PULMONARY Hx Asthma: Yes Hx Pneumonia: Yes Hx Sleep Apnea: Yes - NEUROLOGICAL Hx Seizures: Yes - HEENT Hx HEENT Problems: No - RENAL Hx Chronic Kidney Disease: No - ENDOCRINE/METABOLIC Hx Endocrine Disorders: No - HEMATOLOGICAL/ONCOLOGICAL Hx Blood Disorders: No - INTEGUMENTARY Hx Dermatological Problems: No - MUSCULOSKELETAL/RHEUMATOLOGICAL Hx Musculoskeletal Disorders: No - GASTROINTESTINAL Hx Gastrointestinal Disorders: No - GENITOURINARY/GYNECOLOGICAL Hx Genitourinary Disorders: No - PSYCHIATRIC Hx Anxiety: Yes Hx Depression: Yes Hx Panic Symptoms: Yes Hx Schizophrenia: Yes Hx Substance Use: Yes (PCP) - SURGICAL HISTORY Hx Appendectomy: No Hx Carotid Endarterectomy: No Hx Cholecystectomy: No Hx Coronary Artery Bypass Graft: No Hx Coronary Stent: No Hx Tonsillectomy: No - ANESTHESIA Hx Anesthesia: Yes Hx Anesthesia Reactions: No Hx Malignant Hyperthermia: No Meds Allergies/Adverse Reactions: Allergies Allergy/AdvReac Type Severity Reaction Status Date / Time acetaminophen [From Tylenol] Allergy Intermediate URTICARIA Verified 12/14/17 15:21 mushroom Allergy Intermediate SWELLING Verified 12/14/17 15:21 strawberry Allergy Intermediate SWELLING Verified 12/14/17 15:21 ivory so Allergy Mild ITCHING Uncoded 12/14/17 15:21 - Medications Medications: Current Medications Albuterol/Ipratropium (Duoneb 3 Mg/0.5 Mg (3 Ml) Ud) 3 ml IH [id number] PRN PRN Reason: Shortness of Breath Amlodipine Besylate (Norvasc) 10 mg PO DAILY [facility] Last Admin: 12/26/17 09:20 Dose: 10 mg Aspirin (Aspirin Chewable) 81 mg PO DAILY [facility] Last Admin: 12/26/17 09:20 Dose: 81 mg Atorvastatin Calcium (Lipitor) 40 mg PO DIN [facility] Last Admin: 12/25/17 17:44 Dose: 40 mg Fluticasone Propionate (Flonase) 1 actuation NS DAILY [facility] Last Admin: 12/26/17 09:21 Dose: 1 spr Heparin Sodium (Porcine) (Heparin) 5,000 units SC Q8 [facility]; Protocol Last Admin: 12/26/17 05:22 Dose: 5,000 units Insulin Human Regular (Humulin R Low) 0 units SC ACHS [facility]; Protocol Last Admin: 12/26/17 08:12 Dose: Not Given Physical Exam - Constitutional Appears: No Acute Distress - Head Exam Head Exam: NORMAL INSPECTION - Eye Exam Eye Exam: Normal appearance - ENT Exam ENT Exam: Mucous Membranes Moist - Respiratory Exam Respiratory Exam: Clear to Auscultation Bilateral, NORMAL BREATHING PATTERN - Cardiovascular Exam Cardiovascular Exam: REGULAR RHYTHM - GI/Abdominal Exam GI & Abdominal Exam: Normal Bowel Sounds - Neurological Exam Neurological exam: Alert, CN II-XII Intact (left central hemianopia, decreased sensation left temporal, maxillary, and facial regions, left sided facial droop (forehead spared)), Oriented x3 Additional comments: LUE strength 3/5, LLE strength 5/5, RUE strength 3/5, RLE strength 5/5; no dysarhria, no aphasia, no pronator drift. proprioception intact. - Psychiatric Exam Psychiatric exam: Normal Affect, Normal Mood - Skin Skin Exam: Normal Color Results - Vital Signs Recent Vital Signs: Last Vital Signs Temp 98 F 12/26/17 08:15 Pulse 87 12/26/17 08:15 Resp 20 12/26/17 08:15 BP 147/102 H 12/26/17 09:20 Pulse Ox 96 12/26/17 08:15 - Labs Result Diagrams: 12/26/17 05:30 12/25/17 11:07 Labs: Laboratory Results - last 24 hr 12/25/17 12/25/17 12/25/17 11:07 11:07 11:07 WBC 10.2 RBC 4.69 Hgb 13.8 Hct 41.2 MCV 87.8 MCH 29.4 MCHC 33.5 RDW 13.3 Plt Count 282 MPV 10.3 Gran % 60.5 Lymph % (Auto) 31.3 [place] % (Auto) 5.7 Eos % (Auto) 2.1 Baso % (Auto) 0.4 Gran # 6.17 Lymph # (Auto) 3.2 [place] # (Auto) 0.6 Eos # (Auto) 0.2 Baso # (Auto) 0.04 PT INR APTT Sodium 138 Potassium 4.3 Chloride 102 Carbon Dioxide 32 Anion Gap 8 L BUN 17 Creatinine 0.7 Est GFR ( Amer) > 60 Est GFR (Non-Af Amer) > 60 POC Glucose (mg/dL) Random Glucose 136 H Hemoglobin A1c Calcium 9.3 Total Bilirubin 0.3 AST 27 ALT 35 Alkaline Phosphatase 85 Troponin I < 0.01 Total Protein 6.9 Albumin 3.7 Globulin 3.2 Albumin/Globulin Ratio 1.1 Triglycerides 182 H Cholesterol 192 LDL Cholesterol Direct 134 H HDL Cholesterol 45 Vitamin B12 25-OH Vitamin D Total Free T4 TSH 3rd Generation Urine Color Urine Appearance Urine pH Ur Specific [place] Urine Protein Urine Glucose (UA) Urine Ketones Urine Blood Urine Nitrate Urine Bilirubin Urine Urobilinogen Ur Leukocyte Esterase Urine HCG, Qual Salicylates 3 Urine Opiates Screen Urine Methadone Screen Acetaminophen < 10.0 L Ur Barbiturates Screen Ur Phencyclidine Scrn Ur Amphetamines Screen U Benzodiazepines Scrn U Oth Cocaine Metabols U Cannabinoids Screen Alcohol, Quantitative 12/25/17 12/25/17 12/25/17 11:07 11:07 11:07 WBC RBC Hgb Hct MCV MCH MCHC RDW Plt Count MPV Gran % Lymph % (Auto) [place] % (Auto) Eos % (Auto) Baso % (Auto) Gran # Lymph # (Auto) [place] # (Auto) Eos # (Auto) Baso # (Auto) PT 12.1 INR 1.05 APTT 26.7 Sodium Potassium Chloride Carbon Dioxide Anion Gap BUN Creatinine Est GFR ( Amer) Est GFR (Non-Af Amer) POC Glucose (mg/dL) Random Glucose Hemoglobin A1c 5.4 Calcium Total Bilirubin AST ALT Alkaline Phosphatase Troponin I Total Protein Albumin Globulin Albumin/Globulin Ratio Triglycerides Cholesterol LDL Cholesterol Direct HDL Cholesterol Vitamin B12 25-OH Vitamin D Total Free T4 TSH 3rd Generation Urine Color Urine Appearance Urine pH Ur Specific [place] Urine Protein Urine Glucose (UA) Urine Ketones Urine Blood Urine Nitrate Urine Bilirubin Urine Urobilinogen Ur Leukocyte Esterase Urine HCG, Qual Salicylates Urine Opiates Screen Urine Methadone Screen Acetaminophen Ur Barbiturates Screen Ur Phencyclidine Scrn Ur Amphetamines Screen U Benzodiazepines Scrn U Oth Cocaine Metabols U Cannabinoids Screen Alcohol, Quantitative < 10 12/25/17 12/25/17 12/25/17 11:07 11:07 12:53 WBC RBC Hgb Hct MCV MCH MCHC RDW Plt Count MPV Gran % Lymph % (Auto) [place] % (Auto) Eos % (Auto) Baso % (Auto) Gran # Lymph # (Auto) [place] # (Auto) Eos # (Auto) Baso # (Auto) PT INR APTT Sodium Potassium Chloride Carbon Dioxide Anion Gap BUN Creatinine Est GFR ( Amer) Est GFR (Non-Af Amer) POC Glucose (mg/dL) Random Glucose Hemoglobin A1c Calcium Total Bilirubin AST ALT Alkaline Phosphatase Troponin I Total Protein Albumin Globulin Albumin/Globulin Ratio Triglycerides Cholesterol LDL Cholesterol Direct HDL Cholesterol Vitamin B12 255 25-OH Vitamin D Total < 12.8 L Free T4 TSH 3rd Generation Urine Color yellow Urine Appearance Clear Urine pH 6.0 Ur Specific [place] >= 1.030 Urine Protein Negative Urine Glucose (UA) Negative Urine Ketones Negative Urine Blood Negative Urine Nitrate Negative Urine Bilirubin Negative Urine Urobilinogen 0.2 Ur Leukocyte Esterase Negative Urine HCG, Qual Salicylates Urine Opiates Screen Urine Methadone Screen Acetaminophen Ur Barbiturates Screen Ur Phencyclidine Scrn Ur Amphetamines Screen U Benzodiazepines Scrn U Oth Cocaine Metabols U Cannabinoids Screen Alcohol, Quantitative 12/25/17 12/26/17 12/26/17 21:08 04:00 04:00 WBC RBC Hgb Hct MCV MCH MCHC RDW Plt Count MPV Gran % Lymph % (Auto) [place] % (Auto) Eos % (Auto) Baso % (Auto) Gran # Lymph # (Auto) [place] # (Auto) Eos # (Auto) Baso # (Auto) PT INR APTT Sodium Potassium Chloride Carbon Dioxide Anion Gap BUN Creatinine Est GFR ( Amer) Est GFR (Non-Af Amer) POC Glucose (mg/dL) 149 H Random Glucose Hemoglobin A1c Calcium Total Bilirubin AST ALT Alkaline Phosphatase Troponin I Total Protein Albumin Globulin Albumin/Globulin Ratio Triglycerides Cholesterol LDL Cholesterol Direct HDL Cholesterol Vitamin B12 25-OH Vitamin D Total Free T4 TSH 3rd Generation Urine Color Urine Appearance Urine pH Ur Specific [place] Urine Protein Urine Glucose (UA) Urine Ketones Urine Blood Urine Nitrate Urine Bilirubin Urine Urobilinogen Ur Leukocyte Esterase Urine HCG, Qual Negative Salicylates Urine Opiates Screen Negative Urine Methadone Screen Negative Acetaminophen Ur Barbiturates Screen Negative Ur Phencyclidine Scrn Positive H Ur Amphetamines Screen Negative U Benzodiazepines Scrn Negative U Oth Cocaine Metabols Positive H U Cannabinoids Screen Negative Alcohol, Quantitative 12/26/17 12/26/17 12/26/17 05:30 05:30 07:26 WBC 9.3 RBC 4.65 Hgb 13.5 Hct 41.3 MCV 88.8 MCH 29.0 MCHC 32.7 RDW 13.3 Plt Count 280 MPV 10.9 Gran % 49.8 L Lymph % (Auto) 42.1 H [place] % (Auto) 5.3 Eos % (Auto) 2.4 Baso % (Auto) 0.4 Gran # 4.61 Lymph # (Auto) 3.9 H [place] # (Auto) 0.5 Eos # (Auto) 0.2 Baso # (Auto) 0.04 PT INR APTT Sodium Potassium Chloride Carbon Dioxide Anion Gap BUN Creatinine Est GFR ( Amer) Est GFR (Non-Af Amer) POC Glucose (mg/dL) 143 H Random Glucose Hemoglobin A1c Calcium Total Bilirubin AST ALT Alkaline Phosphatase Troponin I Total Protein Albumin Globulin Albumin/Globulin Ratio Triglycerides Cholesterol LDL Cholesterol Direct HDL Cholesterol Vitamin B12 25-OH Vitamin D Total Free T4 0.99 TSH 3rd Generation 0.56 Urine Color Urine Appearance Urine pH Ur Specific [place] Urine Protein Urine Glucose (UA) Urine Ketones Urine Blood Urine Nitrate Urine Bilirubin Urine Urobilinogen Ur Leukocyte Esterase Urine HCG, Qual Salicylates Urine Opiates Screen Urine Methadone Screen Acetaminophen Ur Barbiturates Screen Ur Phencyclidine Scrn Ur Amphetamines Screen U Benzodiazepines Scrn U Oth Cocaine Metabols U Cannabinoids Screen Alcohol, Quantitative Assessment & Plan - Assessment and Plan (Free Text) Assessment: 47 yo F with PMH of TIA (2 yrs ago), recent L "eye stroke" requiring intraorbital injection, EtOH-related seizure, COPD, DVT s/p IVC filter, and polysubstance abuse presents to [facility] for left sided deficits. Neurology consulted for CVA vs TIA. Plan: - Head CT showed mild scattered non-specific white matter changes - F/u Echo, MRI brain, MRA head/neck - If brain MRI clear, she is clear from Neuro standpoint. f/u outpatient. Will discuss with attending. Ed Sarabia DO PGY2
--- NOTE | 2017-12-26 12:56 | CP.PCM.PN ---
<Shadia Cartagena - Last Filed: 12/26/17 14:38> Subjective - Date & Time of Evaluation Date of Evaluation: 12/26/17 Time of Evaluation: 12:52 - Subjective Subjective: Patient was seen and evaluated at bedside this morning. Patient states she "can't take it anymore, I tried everything to lose weight. No one loves me because of my weight. I want to if I can't get surgery to lose weight." Patient admits suicidal ideation. Patient states she has considered taking pills to overdose, but does not know which pills. Patient admits to continued generalized left-sided numbness. Patient otherwise denies pain, nausea, vomiting, headache, palpitations, and/or chest pain. Objective - Vital Signs/Intake and Output Vital Signs (last 24 hours): Temp Pulse Resp BP Pulse Ox 98 F 69 20 150/100 H 96 12/26/17 08:15 12/26/17 10:00 12/26/17 08:15 12/26/17 10:29 12/26/17 08:15 - Medications Medications: Current Medications Albuterol/Ipratropium (Duoneb 3 Mg/0.5 Mg (3 Ml) Ud) 3 ml IH [id number] PRN PRN Reason: Shortness of Breath Amlodipine Besylate (Norvasc) 10 mg PO DAILY [facility] Last Admin: 12/26/17 09:20 Dose: 10 mg Aspirin (Aspirin Chewable) 81 mg PO DAILY [facility] Last Admin: 12/26/17 09:20 Dose: 81 mg Atorvastatin Calcium (Lipitor) 40 mg PO DIN [facility] Last Admin: 12/25/17 17:44 Dose: 40 mg Fluticasone Propionate (Flonase) 1 actuation NS DAILY [facility] Last Admin: 12/26/17 09:21 Dose: 1 spr Heparin Sodium (Porcine) (Heparin) 5,000 units SC Q8 [facility]; Protocol Last Admin: 12/26/17 05:22 Dose: 5,000 units Insulin Human Regular (Humulin R Low) 0 units SC ACHS [facility]; Protocol Last Admin: 12/26/17 12:00 Dose: Not Given - Labs Labs: 12/26/17 05:30 12/25/17 11:07 PT 12.1 SECONDS (9.4-12.5) 12/25/17 11:07 INR 1.05 12/25/17 11:07 APTT 26.7 Seconds (25.1-36.5) 12/25/17 11:07 - Additional Findings Additional findings: - Constitutional Appears: Acute Distress; Patient is crying - Head Exam Head Exam: NORMAL INSPECTION - Eye Exam Eye Exam: Normal appearance - ENT Exam ENT Exam: Mucous Membranes Moist - Respiratory Exam Respiratory Exam: Clear to Auscultation Bilateral, NORMAL BREATHING PATTERN - Cardiovascular Exam Cardiovascular Exam: REGULAR RHYTHM - GI/Abdominal Exam GI & Abdominal Exam: Normal Bowel Sounds - Neurological Exam Neurological exam: Alert, CN II-XII Intact (left central hemianopia, decreased sensation left temporal, maxillary, and facial regions, left sided facial droop (forehead spared)), Oriented x3 Additional comments: Pronator drif negative bilaterally LUE strength 3/5, LLE strength 5/5, RUE strength 3/5, RLE strength 5/5; no dysarhria, no aphasia, no pronator drift. proprioception intact. Decreased gross sensation in left lower extremity and left upper extremity - Psychiatric Exam Psychiatric exam: Normal Affect, Depressed - Skin Skin Exam: Normal Color Assessment and Plan - Assessment and Plan (Free Text) Assessment: Ms Bhat, 47 F, with PMHx former smoker, poly-substance abuse (cocaine/PCP), recent L "eye stroke" requiring intraorbital injection (2 series recently), TIA (2 years ago), seizure (alcohol related, 5 years ago), COPD on home O2 for a while, obesity (BMI 33), and DVT (s/p IVC filter 2 years ago, never removed) complained of left-sided facial numbness left arm and leg numbness about 4 and a half hour prior to ED arrival. TIA vs stroke, likely thalamic/insular region. Unlikely peripheral neuropathy L side paresthesia - Continue daily ASA, statin - PT/OT pending - O77=089, vit D=12.8, hypercoagulable work up pending - Neurology (Dr. Means) consulted; recommendations appreciated - Cardiology (Dr. Griffith) consulted; recommendations appreciated - Echo with bubble obtained; pending report - Carotid doppler: patient was not able to complete exam due to CODE SCHROEDER. Please see CODE SCHROEDER note for more details. - MRI and MRA head/neck without contrast pending - Neuro checks and vitals q4h - Aspiration precaution Hyperlipidimia - Add lipitor Hyperglycemia - follow on A1C, insulin ISSS, accucheck Junctional rhythm with prolong QTc 494 - Echocardiogram obtained; pending report - TSH, Free T4 - cardiology (Dr. Griffith); recommendations appreciated Hx poly-substance abuse (cocaine/PCP) - UDS Positive for Cocaine, PCP COPD, stable LEELA - Continue duoneb PRN - O2 PRN - Cpap HS if tolerated - Continue home flonase Obesity with Chronic Back Pain - Patientt endorsed that she was rejected by medicaid for bariatric surgery - Ammonia Distiller consulted; recommendations appreciated Suicidal Ideation - Patient placed 1:1 - Psychiatry was consulted (Dr. Beckham); recommendations appreciated Prophylaxis - heparin SC due to hx clot. Low risk GI ulcer. Patient seen and case discussed in detail with Dr. Vish Cartagena PGY1 <Karen Wahl - Last Filed: 12/27/17 15:47> Objective - Vital Signs/Intake and Output Vital Signs (last 24 hours): Temp Pulse Resp BP Pulse Ox 98.6 F 99 H 20 170/106 H 100 12/27/17 08:32 12/27/17 14:00 12/27/17 08:32 12/27/17 11:06 12/27/17 08:32 Intake and Output: 12/27/17 12/27/17 06:59 18:59 Intake Total 300 Balance 300 - Labs Labs: 12/27/17 06:00 12/27/17 06:00 PT 12.1 SECONDS (9.4-12.5) 12/25/17 11:07 INR 1.05 12/25/17 11:07 APTT 26.7 Seconds (25.1-36.5) 12/25/17 11:07 Attending/Attestation - Attestation I have personally seen and examined this patient.: Yes I have fully participated in the care of the patient.: Yes I have reviewed all pertinent clinical information, including history, physical exam and plan: Yes
[2017-12-27] MEDS ORDERED: Metoprolol 1 mg/ml Inj IVP ONE (00:34)
--- NOTE | 2017-12-27 03:05 | CON ---
DATE: 12/26/2017 CARDIOLOGY CONSULTATION REASON FOR CONSULTATION: Left-sided numbness. HISTORY OF PRESENT ILLNESS: The patient is a 47 years old morbidly obese female who stated that she had a history of stroke few months ago that has left her with impaired left eye vision; she presents with left-sided numbness. She denies retrosternal chest pain and is unaware of any prior cardiac history. At the time of my evaluation, the patient was depressed and crying because of the issue that she is obese and Medicaid will not pay for her weight reduction surgery. SOCIAL HISTORY: The patient is cocaine and phencyclidine abuser. MEDICATIONS: Aspirin 81 mg once a day, heparin 5000 units subcutaneous every 8 hours, Lipitor 40 mg once a day and Norvasc 10 mg once a day. PHYSICAL EXAMINATION: GENERAL: The patient is a morbidly obese middle aged female who does not appear to be in acute distress. VITAL SIGNS: The patient's blood pressure 147/102, heart rate 87, temperature 98 and respirations 20. HEENT: No pallor or icterus. NECK: No JVD. CHEST: Clear. HEART: Sounds regular. ABDOMEN: Soft. EXTREMITIES: 1+ pitting edema. LABORATORY DATA: Today's hemoglobin, hematocrit, white count and platelet count are within normal limit. PT, INR and PTT are within normal limit. SMA-7 is within normal limit except for glucose of 136 and an anion gap of 8. One troponin is less than 0.01. Urine drug screen is positive for cocaine and phencyclidine. EKG revealed normal sinus rhythm with nonspecific T-wave changes and prolonged QT interval. Head CT scan without contrast, mild scattered nonspecific white matter changes. Chest x-ray was reviewed and was unremarkable except for prominent bronchovascular markings. ASSESSMENT: 1. Rule out transient ischemic attack/cerebrovascular accident. 2. Uncontrolled hypertension. 3. Morbid obesity. 4. Depression. 5. Cocaine and phencyclidine abuse. RECOMMENDATIONS: Continue aspirin 81 mg once daily, Lipitor 40 mg once a day, subcutaneous heparin 5000 units every 8 hours, Norvasc 10 mg once a day and we will administer one dose of Lasix as 40 mg IV push now. Obtain an echocardiogram, carotid Doppler, and Neurology evaluation. Jaspal Griffith MD [facility] # [id number]
[2017-12-27 06:21] LABS: BASO # 0.04 K/mm3 (0.0-2.0); BASO % 0.3 % (0.0-3.0); EOS # 0.2 (0.0-0.7); EOS % 1.9 % (1.5-5.0); GRAN # 6.89 (1.4-6.5); GRAN % 58.4 % (50.0-68.0); HEMOGLOBIN 13.4 g/dL (12.0-16.0); LYMPH % 33.9 % (22.0-35.0); MEAN CELL VOLUME 88.4 fl (80.0-105.0); MEAN CORPUSCULAR HEMOGLOBIN 28.9 pg (25.0-35.0); MEAN CORPUSCULAR HGB CONC 32.7 g/dl (31.0-37.0); MONO # 0.7 (0.1-0.6); MONO % 5.5 % (1.0-6.0); RBC 4.64 10^6/uL (3.5-6.1); RED CELL DISTRIBUTION WIDTH 13.2 % (11.5-14.5); WHITE BLOOD COUNT 11.8 10^3/uL (4.5-11.0)
[2017-12-27 07:21] LABS: ALB/GLOB RATIO 1.1 (1.1-1.8); ALBUMIN 3.6 g/dL (3.0-4.8); ALT/SGPT 35 U/L (7-56); AST/SGOT 23 U/L (14-36); BLOOD UREA NITROGEN 16 mg/dL (7-21); CALCIUM 8.6 mg/dL (8.4-10.5); GFR NON-AFRICAN AMERICAN > 60
[2017-12-27] MEDS: Insulin Reg-LOW-Coverage SC SCH ×2 (08:13→12:07)
[2017-12-27 08:33] VITALS: TEMP 98.6; O2SAT 100
--- NOTE | 2017-12-27 09:22 | CARD ---
APPROVED REPORT Date of service: 12/26/2017 EXAM: Two-dimensional and M-mode echocardiogram with Doppler and color Doppler. Other Information Quality : PoorRhythm : INDICATION JUNCTIONAL RHYTHM 2D DIMENSIONS Left Atrium (2D)3.3 (1.6-4.0cm)IVSd1.2 (0.7-1.1cm) LVDd4.1 (3.9-5.9cm)PWd1.2 (0.7-1.1cm) LVDs2.8 (2.5-4.0cm)FS (%) 30.9 % LVEF (%)59.0 (>50%) M-Mode DIMENSIONS Aortic Root2.30 (2.2-3.7cm)Aortic Cusp Exc.1.30 (1.5-2.0cm) Aortic Valve AoV Peak Mwwjogje227.0cm/Brian Peak GR.7mmHg Mitral Valve MV E Qzvdywwe30.7cm/sMV A Fnneqrdl06.4cm/sE/A ratio0.6 TDI E/Lateral E'0.0E/Medial E'0.0 Tricuspid Valve TR Peak [id number] [id number] Peak Gr.8mmHg [id number] LEFT VENTRICLE The left ventricle is normal size. There is borderline to mild concentric left ventricular hypertrophy. The left ventricular function is normal. The left ventricular ejection fraction is within the normal range. There is normal LV segmental wall motion. RIGHT VENTRICLE The right ventricle is normal size. ATRIA The left atrium size is normal. The right atrium size is normal. The interatrial septum is intact with no evidence for an atrial septal defect. AORTIC VALVE The aortic valve is not well visualized. MITRAL VALVE The mitral valve is normal in structure. TRICUSPID VALVE The tricuspid valve is normal in structure. There is trace tricuspid regurgitation. PULMONIC VALVE The pulmonic valve is not well visualized. GREAT VESSELS The aortic root is normal in size. PERICARDIAL EFFUSION There is no pericardial effusion. <Conclusion> This is a very limited study. The left ventricle is normal size. There is borderline to mild concentric left ventricular hypertrophy. The left ventricular function is normal.
[2017-12-27] MEDS ORDERED: Cholecalciferol 1,000 INTLU TAB PO SCH (10:00)
[2017-12-27] MEDS: Fluticasone Nasal 50 mcg/Spray NS SCH (10:10)
[2017-12-27] MEDS ORDERED: guaiFENesin 100 mg/5 ml Syrup UD PO PRN (10:55)
[2017-12-27 11:12] VITALS: BP 170/106
[2017-12-27 11:38] LABS: CARDIOLIPIN AB (IGA) <11 APL (<=11)
--- NOTE | 2017-12-27 14:12 | PN ---
DATE: 12/27/2017 SUBJECTIVE: The patient denies any chest pain. She is still depressed and crying. The family are at the bedside. PHYSICAL EXAMINATION: VITAL SIGNS: Blood pressure 170/106, heart rate 86, temperature 98.6, respiration 20. HEENT: Normocephalic. CHEST: Clear. HEART: S1 and S2, regular. EXTREMITIES: 1+ pitting edema. LABORATORY DATA AND IMAGING: Today's SMA-7 is within normal limits except for glucose of 178 and creatinine 0.6. Today's hemoglobin, hematocrit and platelet count are within normal limits. White count is elevated at 11.8. Echocardiographic study was limited study, normal left ventricular size, mild concentric LVH with normal systolic function. ASSESSMENT: 1. Status post cocaine abuse. 2. Rule out transient ischemic attack. 3. Uncontrolled hypertension. 4. Moderate obesity and depression. RECOMMENDATIONS: Continue subcutaneous heparin 5000 units every 8 hours. Continue Lipitor at 40 mg once a day, Norvasc at 10 mg once a day, aspirin 81 mg once a day, Zestril 20 mg orally daily. Jaspal Griffith MD
[2017-12-27 14:19] VITALS: PULSE 99
--- NOTE | 2017-12-27 14:57 | CP.PCM.DIS ---
<Shadia Cartagena - Last Filed: 12/27/17 14:54> Provider - Provider Date of Admission: 12/27/17 07:16 Attending physician: Karen Wahl MD Primary care physician: NO FAMILY PROVIDER Consults: Neurology: Dr. Means Cardiology: Dr. Griffith Psychiatry: Dr. Beckham Time Spent in preparation of Discharge (in minutes): 45 Hospital Course - Lab Results Lab Results: Most Recent Lab Values WBC 11.8 10^3/uL (4.5-11.0) H D 12/27/17 06:00 RBC 4.64 10^6/uL (3.5-6.1) 12/27/17 06:00 Hgb 13.4 g/dL (12.0-16.0) 12/27/17 06:00 Hct 41.0 % (36.0-48.0) 12/27/17 06:00 MCV 88.4 fl (80.0-105.0) 12/27/17 06:00 MCH 28.9 pg (25.0-35.0) 12/27/17 06:00 MCHC 32.7 g/dl (31.0-37.0) 12/27/17 06:00 RDW 13.2 % (11.5-14.5) 12/27/17 06:00 Plt Count 260 10^3/uL (120.0-450.0) 12/27/17 06:00 MPV 11.0 fl (7.0-11.0) 12/27/17 06:00 Gran % 58.4 % (50.0-68.0) 12/27/17 06:00 Lymph % (Auto) 33.9 % (22.0-35.0) 12/27/17 06:00 [place] % (Auto) 5.5 % (1.0-6.0) 12/27/17 06:00 Eos % (Auto) 1.9 % (1.5-5.0) 12/27/17 06:00 Baso % (Auto) 0.3 % (0.0-3.0) 12/27/17 06:00 Gran # 6.89 (1.4-6.5) H 12/27/17 06:00 Lymph # (Auto) 4.0 (1.2-3.4) H 12/27/17 06:00 [place] # (Auto) 0.7 (0.1-0.6) H 12/27/17 06:00 Eos # (Auto) 0.2 (0.0-0.7) 12/27/17 06:00 Baso # (Auto) 0.04 K/mm3 (0.0-2.0) 12/27/17 06:00 PT 12.1 SECONDS (9.4-12.5) 12/25/17 11:07 INR 1.05 12/25/17 11:07 APTT 26.7 Seconds (25.1-36.5) 12/25/17 11:07 Sodium 138 mmol/L (132-148) 12/27/17 06:00 Potassium 3.9 mmol/L (3.6-5.0) 12/27/17 06:00 Chloride 103 mmol/L (98-107) 12/27/17 06:00 Carbon Dioxide 28 mmol/L (21-33) 12/27/17 06:00 Anion Gap 11 (10-20) 12/27/17 06:00 BUN 16 mg/dL (7-21) 12/27/17 06:00 Creatinine 0.6 mg/dl (0.7-1.2) L 12/27/17 06:00 Est GFR ( Amer) > 60 12/27/17 06:00 Est GFR (Non-Af Amer) > 60 12/27/17 06:00 POC Glucose (mg/dL) 256 mg/dL (65-110) H 12/27/17 11:22 Random Glucose 178 mg/dL (70-110) H 12/27/17 06:00 Hemoglobin A1c 5.4 % (4.2-6.5) 12/25/17 11:07 Calcium 8.6 mg/dL (8.4-10.5) 12/27/17 06:00 Total Bilirubin 0.3 mg/dL (0.2-1.3) 12/27/17 06:00 AST 23 U/L (14-36) 12/27/17 06:00 ALT 35 U/L (7-56) 12/27/17 06:00 Alkaline Phosphatase 111 U/L (38-126) 12/27/17 06:00 Troponin I < 0.01 ng/mL 12/25/17 11:07 Total Protein 6.9 g/dL (5.8-8.3) 12/27/17 06:00 Albumin 3.6 g/dL (3.0-4.8) 12/27/17 06:00 Globulin 3.3 gm/dL 12/27/17 06:00 Albumin/Globulin Ratio 1.1 (1.1-1.8) 12/27/17 06:00 Triglycerides 182 mg/dL (35-160) H 12/25/17 11:07 Cholesterol 192 mg/dL (130-200) 12/25/17 11:07 LDL Cholesterol Direct 134 mg/dL (0-129) H 12/25/17 11:07 HDL Cholesterol 45 mg/dL (29-60) 12/25/17 11:07 Vitamin B12 255 pg/mL (239-931) 12/25/17 11:07 25-OH Vitamin D Total < 12.8 NG/ML (30.0-100.0) L 12/25/17 11:07 Homocysteine 6.9 umol/L (4.7-12.6) 12/26/17 05:30 Free T4 0.99 ng/dL (0.78-2.19) 12/26/17 05:30 TSH 3rd Generation 0.56 mIU/mL (0.46-4.68) 12/26/17 05:30 Urine Color yellow (YELLOW) 12/25/17 12:53 Urine Appearance Clear (CLEAR) 12/25/17 12:53 Urine pH 6.0 (4.7-8.0) 12/25/17 12:53 Ur Specific [place] >= 1.030 (1.005-1.035) 12/25/17 12:53 Urine Protein Negative mg/dL (<30 mg/dL) 12/25/17 12:53 Urine Glucose (UA) Negative mg/dL (NEGATIVE) 12/25/17 12:53 Urine Ketones Negative mg/dL (NEGATIVE) 12/25/17 12:53 Urine Blood Negative (NEGATIVE) 12/25/17 12:53 Urine Nitrate Negative (NEGATIVE) 12/25/17 12:53 Urine Bilirubin Negative (NEGATIVE) 12/25/17 12:53 Urine Urobilinogen 0.2 E.U./dL (<1 E.U./dL) 12/25/17 12:53 Ur Leukocyte Esterase Negative Janette/uL (NEGATIVE) 12/25/17 12:53 Urine HCG, Qual Negative (NEGATIVE) 12/26/17 04:00 Salicylates 3 mg/dL (2.0-20.0) 12/25/17 11:07 Urine Opiates Screen Negative (NEGATIVE) 12/26/17 04:00 Urine Methadone Screen Negative (NEGATIVE) 12/26/17 04:00 Acetaminophen < 10.0 ug/ml (10.0-20.0) L 12/25/17 11:07 Ur Barbiturates Screen Negative (NEGATIVE) 12/26/17 04:00 Ur Phencyclidine Scrn Positive (NEGATIVE) H 12/26/17 04:00 Ur Amphetamines Screen Negative (NEGATIVE) 12/26/17 04:00 U Benzodiazepines Scrn Negative (NEGATIVE) 12/26/17 04:00 U Oth Cocaine Metabols Positive (NEGATIVE) H 12/26/17 04:00 U Cannabinoids Screen Negative (NEGATIVE) 12/26/17 04:00 Alcohol, Quantitative < 10 mg/dL (0-10) 12/25/17 11:07 Double Strand DNA Ab <1 IU/mL 12/26/17 05:30 Anti-Cardiolipin IgG Ab <14 GPL (<=14) 12/26/17 05:30 Anti-Cardiolipin IgA Ab <11 APL (<=11) 12/26/17 05:30 Anti-Cardiolipin IgM Ab <12 MPL (<=12) 12/26/17 05:30 - Hospital Course Hospital Course: PGY1 Discharge Summary and Hospital Course for Dr. Vish Bhat, 47 F who has a past medical history of being a former smoker, poly- substance abuse (cocaine/PCP), recent L "eye stroke" requiring intraorbital injection (2 series recently), TIA (2 years ago), seizure (alcohol related, 5 years ago), COPD on home O2 for a while, obesity (BMI 33), and DVT (s/p IVC filter 2 years ago, never removed) came in with complaint of left-sided facial numbness left arm and leg numbness about 4 and a half hour prior to ED arrival. Of note the patient was recently admitted to [facility] 3 weeks ago for pneumonia. Please see chart for more detail. Patient also has a recent diagnosis of E-coli UTI, finished the course of keflex. Please see complete chart for more detail. Upon ED arrival, T 98.9, HR 85, 137/96, RR30, 95% RA. CBC unremarkable (WBC 10, Hb 13.8, plt 282). Coagulation panel was normal. CMP unremarkable (Na 138, K 4.2, Bicarb 32, Bun 17, Cre 0.7). glucose 136. Trops < 0.01, Total chol 192, LDL 124, Tg 182, HDL 45. NIHSS 0 in ED. U/A neg, Urine drug screen positive for PCP and cocaine. Head CT: mild scattered nonspecific whilte matter changes. EKG: junctional rhythm @ 78, non-specific TW changes, QTc 494. CXR: No focal consolidation. Cardiology was consulted (Dr. Griffith). Neurology was consulted (Dr. Means) who recommended MRI. Patient was treated for her chronic conditions and was worked-up for stroke during hospitalization. During admission, the patient admitted to suicidal ideation. Thus psychiatry was consulted (Dr. Beckham) and patient was placed 1:1 for safety of the patient. Psychiatry accepted patient to the unit, and patient agreed at the time. In the afternoon of 12/27/2017., The Patient was pending MRI and was accepted to psychiatry, however the patient eloped AGAINST MEDICAL ADVICE. This action is against my medical advice to the patient and the decision was made with informed refusal. The patient was told that further workup is necessary and a full explanation of the rationale was given. The risks of leaving were explained to the patient and include but are not limited to increased morbidity and mortality, , and worsening of known or unknown conditions. Patient subsequently proceeded to elope against medical advice. The patient voluntarily accepted these risks and left the hospital without singing out. The patient was given the opportunity ask questions and reconsider. The patient was encouraged to return to emergency room at any time for further care. She was advised to follow-up with her primary care doctor as soon as possible. Although patient refused to wait and sign out officially, we were able to provide to the patient her prescriptions. Patient was educated on complete cessation of recreational drugs and was informed of risks which include but not limited to heart attack, stroke, worsening of known and/or unknown conditions and/or . The former was discussed in detail with patient. Patient agreed and confirmed her understanding. Discharge Medications (provided to patient prior to elopement) Norvasc- 10mg PO daily Flonase 120 1 puff NS daily Desyrel 50mg PO HS Ventolin 2 puffs IH [id number] - Rx ASA 81mg PO daily - Rx Lipitor 40mg PO DIN #14 - Rx Vitamin D 2,000 PO Daily - Rx Lisinopril 20mg PO daily #14 - Rx Patient seen and case discussed with Dr. Vish Cartagena PGY1 Discharge Exam - Head Exam Additional comments: Patient eloped, thus physical exam could not be completed prior to discharge. Please see most recent progress note for physical exam findings. Discharge Plan - Discharge Medications Prescriptions: RX: amLODIPine [Norvasc] 10 mg PO DAILY #14 tab RX: Aspirin [Aspirin Chewable] 81 mg PO DAILY #14 chew RX: Atorvastatin [Lipitor] 40 mg PO DIN #14 tab RX: Cholecalciferol [Vitamin D 1000 IU] 2,000 intlu PO DAILY #14 tab RX: Lisinopril [Zestril] 20 mg PO DAILY #14 tab - Follow Up Plan Condition: GUARDED Disposition: ELOPED FROM NURSING UNIT Additional Instructions: Patient eloped. Thus, additional instructions were not discussed with patient. <Karen Wahl - Last Filed: 12/27/17 15:47> Provider - Provider Date of Admission: 12/27/17 07:16 Attending physician: Karen Wahl MD Hospital Course - Lab Results Lab Results: Most Recent Lab Values WBC 11.8 10^3/uL (4.5-11.0) H D 12/27/17 06:00 RBC 4.64 10^6/uL (3.5-6.1) 12/27/17 06:00 Hgb 13.4 g/dL (12.0-16.0) 12/27/17 06:00 Hct 41.0 % (36.0-48.0) 12/27/17 06:00 MCV 88.4 fl (80.0-105.0) 12/27/17 06:00 MCH 28.9 pg (25.0-35.0) 12/27/17 06:00 MCHC 32.7 g/dl (31.0-37.0) 12/27/17 06:00 RDW 13.2 % (11.5-14.5) 12/27/17 06:00 Plt Count 260 10^3/uL (120.0-450.0) 12/27/17 06:00 MPV 11.0 fl (7.0-11.0) 12/27/17 06:00 Gran % 58.4 % (50.0-68.0) 12/27/17 06:00 Lymph % (Auto) 33.9 % (22.0-35.0) 12/27/17 06:00 [place] % (Auto) 5.5 % (1.0-6.0) 12/27/17 06:00 Eos % (Auto) 1.9 % (1.5-5.0) 12/27/17 06:00 Baso % (Auto) 0.3 % (0.0-3.0) 12/27/17 06:00 Gran # 6.89 (1.4-6.5) H 12/27/17 06:00 Lymph # (Auto) 4.0 (1.2-3.4) H 12/27/17 06:00 [place] # (Auto) 0.7 (0.1-0.6) H 12/27/17 06:00 Eos # (Auto) 0.2 (0.0-0.7) 12/27/17 06:00 Baso # (Auto) 0.04 K/mm3 (0.0-2.0) 12/27/17 06:00 PT 12.1 SECONDS (9.4-12.5) 12/25/17 11:07 INR 1.05 12/25/17 11:07 APTT 26.7 Seconds (25.1-36.5) 12/25/17 11:07 Sodium 138 mmol/L (132-148) 12/27/17 06:00 Potassium 3.9 mmol/L (3.6-5.0) 12/27/17 06:00 Chloride 103 mmol/L (98-107) 12/27/17 06:00 Carbon Dioxide 28 mmol/L (21-33) 12/27/17 06:00 Anion Gap 11 (10-20) 12/27/17 06:00 BUN 16 mg/dL (7-21) 12/27/17 06:00 Creatinine 0.6 mg/dl (0.7-1.2) L 12/27/17 06:00 Est GFR ( Amer) > 60 12/27/17 06:00 Est GFR (Non-Af Amer) > 60 12/27/17 06:00 POC Glucose (mg/dL) 256 mg/dL (65-110) H 12/27/17 11:22 Random Glucose 178 mg/dL (70-110) H 12/27/17 06:00 Hemoglobin A1c 5.4 % (4.2-6.5) 12/25/17 11:07 Calcium 8.6 mg/dL (8.4-10.5) 12/27/17 06:00 Total Bilirubin 0.3 mg/dL (0.2-1.3) 12/27/17 06:00 AST 23 U/L (14-36) 12/27/17 06:00 ALT 35 U/L (7-56) 12/27/17 06:00 Alkaline Phosphatase 111 U/L (38-126) 12/27/17 06:00 Troponin I < 0.01 ng/mL 12/25/17 11:07 Total Protein 6.9 g/dL (5.8-8.3) 12/27/17 06:00 Albumin 3.6 g/dL (3.0-4.8) 12/27/17 06:00 Globulin 3.3 gm/dL 12/27/17 06:00 Albumin/Globulin Ratio 1.1 (1.1-1.8) 12/27/17 06:00 Triglycerides 182 mg/dL (35-160) H 12/25/17 11:07 Cholesterol 192 mg/dL (130-200) 12/25/17 11:07 LDL Cholesterol Direct 134 mg/dL (0-129) H 12/25/17 11:07 HDL Cholesterol 45 mg/dL (29-60) 12/25/17 11:07 Vitamin B12 255 pg/mL (239-931) 12/25/17 11:07 25-OH Vitamin D Total < 12.8 NG/ML (30.0-100.0) L 12/25/17 11:07 Homocysteine 6.9 umol/L (4.7-12.6) 12/26/17 05:30 Free T4 0.99 ng/dL (0.78-2.19) 12/26/17 05:30 TSH 3rd Generation 0.56 mIU/mL (0.46-4.68) 12/26/17 05:30 Urine Color yellow (YELLOW) 12/25/17 12:53 Urine Appearance Clear (CLEAR) 12/25/17 12:53 Urine pH 6.0 (4.7-8.0) 12/25/17 12:53 Ur Specific [place] >= 1.030 (1.005-1.035) 12/25/17 12:53 Urine Protein Negative mg/dL (<30 mg/dL) 12/25/17 12:53 Urine Glucose (UA) Negative mg/dL (NEGATIVE) 12/25/17 12:53 Urine Ketones Negative mg/dL (NEGATIVE) 12/25/17 12:53 Urine Blood Negative (NEGATIVE) 12/25/17 12:53 Urine Nitrate Negative (NEGATIVE) 12/25/17 12:53 Urine Bilirubin Negative (NEGATIVE) 12/25/17 12:53 Urine Urobilinogen 0.2 E.U./dL (<1 E.U./dL) 12/25/17 12:53 Ur Leukocyte Esterase Negative Janette/uL (NEGATIVE) 12/25/17 12:53 Urine HCG, Qual Negative (NEGATIVE) 12/26/17 04:00 Salicylates 3 mg/dL (2.0-20.0) 12/25/17 11:07 Urine Opiates Screen Negative (NEGATIVE) 12/26/17 04:00 Urine Methadone Screen Negative (NEGATIVE) 12/26/17 04:00 Acetaminophen < 10.0 ug/ml (10.0-20.0) L 12/25/17 11:07 Ur Barbiturates Screen Negative (NEGATIVE) 12/26/17 04:00 Ur Phencyclidine Scrn Positive (NEGATIVE) H 12/26/17 04:00 Ur Amphetamines Screen Negative (NEGATIVE) 12/26/17 04:00 U Benzodiazepines Scrn Negative (NEGATIVE) 12/26/17 04:00 U Oth Cocaine Metabols Positive (NEGATIVE) H 12/26/17 04:00 U Cannabinoids Screen Negative (NEGATIVE) 12/26/17 04:00 Alcohol, Quantitative < 10 mg/dL (0-10) 12/25/17 11:07 Double Strand DNA Ab <1 IU/mL 12/26/17 05:30 Anti-Cardiolipin IgG Ab <14 GPL (<=14) 12/26/17 05:30 Anti-Cardiolipin IgA Ab <11 APL (<=11) 12/26/17 05:30 Anti-Cardiolipin IgM Ab <12 MPL (<=12) 12/26/17 05:30 Attending/Attestation - Attestation I have personally seen and examined this patient.: Yes I have fully participated in the care of the patient.: Yes I have reviewed all pertinent clinical information, including history, physical exam and plan: Yes Notes (Text): 12/27/17 15:44 47 F, with PMHx former smoker, poly-substance abuse (cocaine/PCP), TIA (2 years ago), seizure (alcohol related, 5 years ago), COPD,obesity (BMI 33), .H/O DVT (s/p IVC filter 2 years ago, never removed) was admitted with left-sided facial numbness left arm and leg numbness about 4 and a half hour prior to ED arrival. CT head was negative. Symptoms are improving. Patient has refused MRI Brain. Patient was agitated and was evaluated by Psychiatry.She denies any suicidal ideation. Blood pressure is running high, she refused to stay in the hospital and left the hospital without letting any one aware. Prognosis is guarded due to non compliance and ongoing drug abuse.
--- NOTE | 2017-12-27 20:42 | CON ---
DATE OF CONSULTATION: 12/27/2017 HISTORY OF PRESENT ILLNESS: In short, the patient is a 47-year-old female with reported history of mood spectrum disorder as well as history of substance abuse. On top of that, the patient has neurocognitive deficit. The patient came to the hospital for left-sided numbness. Psych consult was called because the patient expressed suicidal ideation in the context that she will be not able to have bariatric surgery. The patient was seen and examined today. The patient presented to be alert, tearful, child-like demeanor, very concrete thought process. The patient is not able to abstract thinking. The patient's family is next to the patient. Kali An, this is the patient's aunt, and Corrine Wills, this is the patient's cousin. The patient presented relatively well. The patient said that she wanted to have bariatric surgery because she does not feel like her family loves her, because of her weight. The patient's family assured her that they love her. The patient also was tearful about the fact that "My kids do not love me, they are ashamed of me that I am so fat." The patient reported feeling frustrated, but denied any intent or plan to kill herself, but yesterday the patient was making statements that she wanted to end up her life if she would not have bariatric surgery. The patient denied hearing voices, denied seeing things, denied paranoid ideation. The patient does not present to be psychotic. The patient reported that she has a history of being admitted to the psychiatric inpatient unit. Records reviewed. The patient has a history of depression and history of detox. As per the [facility], the patient seems to be compliant with the medication. The patient is on amlodipine, which the patient filled on 11/28/2017; also albuterol, which she filled on 11/28/2017; gabapentin 300 mg, which she filled on 11/28/2017. The patient also is on trazodone filled on 11/28/2017, also fluticasone filled on 11/28/2017. Prescriber is Ameya Romero. LABORATORY DATA: Reviewed. WBC cells 11.8. Chemistry reviewed. Urinalysis reviewed. Toxicology was positive for PCP as well as cocaine. Microbiology reviewed. On 12/14/2017, the patient had E. coli in her urine. MENTAL STATUS EXAMINATION: The patient presented to be obese, tearful, emotionally labile. Mood described as "I feel upset as I cannot have my bariatric surgery, nobody loves me." Thought process seems to be concrete, no abstract thinking. Thought Content: The patient was verbalizing thoughts of harming herself yesterday out of anger. The patient denied any intent or plan to kill herself today. The patient's family is next to her. Collaterals were obtained. Insight and judgment seems to be limited, but it is baseline. Impulses are better controlled today to compare with yesterday. PLAN: Continue current management. Continue current medications. The patient might benefit from the mood stabilizers. This freelance writer offered admission, but the patient declined that offer. The patient contracted for safety. Medical team contacted family. Family is going to come and pick the patient up. The patient said that her kids are protective factors for her and she will not kill herself. The patient reported that she has future oriented plans. She wants to go back home and spend Thanksgiving with her family. The patient not in acute distress. Discussed with attending, Dr. Wahl, if the patient's family is willing to take her back home and the patient is not suicidal and not homicidal, there is no other option than just to let the patient go because of this freelance writer offered her admission, but the patient declined that offer. The patient does not meet the criteria for [facility] evaluation. Should you have any questions, give me a call back. Thank you very much for letting me participate in the care of your patient. Bhavani Bennett MD
[2017-12-29 00:55] LABS: B2 GLYCOPROTEIN I AB(IGA) <9 SAU (<=20); B2 GLYCOPROTEIN I AB(IGG) <9 SGU (<=20); B2 GLYCOPROTEIN I AB(IGM) <9 SMU (<=20)
[2017-12-30 07:53] LABS: CARDIOLIPIN AB (IGA) <11 APL (<=11); CARDIOLIPIN AB (IGG) <14 GPL (<=14); CARDIOLIPIN AB (IGM) <12 MPL (<=12)
[2017-12-31 07:55] LABS: PHOSPHATIDYLSERINE AB IGA <20 U/mL (<20); PHOSPHATIDYLSERINE AB IGG <10 U/mL (<10); PHOSPHATIDYLSERINE AB IGM <25 U/mL (<25)
== END 2017-12-27 15:33 | disposition left against medical advice (07) ==
LOC: ED 09:17 → ERH 14:01 → 3RNO 15:18 → 3RSO 12-26 14:26 → OBSVTOIN 12-27 07:16 → INTOOBSV 12-27 07:16
PROVIDERS: ADMIT Hospitalist; ATTEND Internal Medicine
DX: R20.0 Anesthesia of skin (principal); F16.10 Hallucinogen abuse, uncomplicated; F20.9 Schizophrenia, unspecified; F32.89 Other specified depressive episodes; F41.0 Panic disorder [episodic paroxysmal anxiety]; G47.33 Obstructive sleep apnea (adult) (pediatric); E66.01 Morbid (severe) obesity due to excess calories; G89.29 Other chronic pain; M54.9 Dorsalgia, unspecified; I10 Essential (primary) hypertension; J44.9 Chronic obstructive pulmonary disease, unspecified; Z88.6 Allergy status to analgesic agent; Z91.018 Allergy to other foods; Z91.048 Other nonmedicinal substance allergy status; R29.700 NIHSS score 0; R45.851 Suicidal ideations; Z87.440 Personal history of urinary (tract) infections; Z79.899 Other long term (current) drug therapy; Z82.3 Family history of stroke; Z83.3 Family history of diabetes mellitus; Z86.718 Personal history of other venous thrombosis and embolism; Z86.73 Personal history of transient ischemic attack (TIA), and cerebral infarction without residual deficits; Z87.01 Personal history of pneumonia (recurrent); Z87.891 Personal history of nicotine dependence; Z91.19 Patient's noncompliance with other medical treatment and regimen; Z99.81 Dependence on supplemental oxygen; Z68.33 Body mass index [BMI] 33.0-33.9, adult
CPT/HCPCS: 36415; 70450; 71045; 80053; 80061; 80320; 80324; 80329; 80345; 80346; 80349; 80353; 80358; 80361; 81003; 81241; 82306; 82607; 82948; 83036; 83516; 83992; 84439; 84443; 84484; 84703; 85025; 85610; 85730; 86038; 86039; 86146; 86147; 86148; 86160; 86225; 86235; 86376; 86431; 90791; 93005; 93306; 94660; 94760; 96372; 96374; 96375; 96376; 97161; 97530; 99285; G0378; G8978; G8979; J1644; J1940; J2060; J7030